=== PATIENT | female | born 1965 | race Caucasian/White ===

== ENCOUNTER → 2020-11-18 17:35 | Outpatient (CLI) | payer OTHER, SELFPAY ==
--- NOTE | ~2020-11-18 | MR_ITS ---
EXAMINATION: MR brain/brain stem wo con DATE: 11/18/2020 18:25 INDICATION: Headache. TECHNIQUE: Magnetic resonance imaging (MRI) of the brain and brainstem was performed without intraven ous contrast. Sequences included sagittal and axial T1-weighted FSE, axial diffusion-weighted FS EPI, axial T2*-weighted GRE, axial T2-weighted FLAIR Propeller, and axial T2-weighted Propeller. Apparent diffusion coefficient (ADC) maps were created. COMPARISON: None. FINDINGS: There is a 6.4 x 5.4 cm mass in the left frontal lobe that demonstrates heterogeneous signa l intensity including areas of decreased T2*weighted signal intensity and increased, decreased, and i ntermediate T1 and T2 weighted signal intensity. There is vasogenic edema in the adjacent white matte r. There is up to 14 mm rightward subfalcine midline shift. There is mass effect on the ventricles. T here is no acute ischemic infarct. 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 There is a m ucous retention cyst in left maxillary sinus. The orbits are normal. The mastoid air cells are normal . IMPRESSION: 1. Heterogenous 6.4 cm mass in left frontal lobe with blood products, most likely a glioblastoma or m etastatic disease. Reviewed, dictated and finalized at location A. L CUTTER IMPRESSION: 1. Heterogenous 6.4 cm mass in left frontal lobe with blood products, most like ly a glioblastoma or metastatic disease.
== END ==
PROVIDERS: PCP Family Medicine Adolescent Medicine; Visit Provider Physician Assistant
DX: R51.9 Headache, unspecified (principal); R22.0 Localized swelling, mass and lump, head
CPT/HCPCS: 70551

== ENCOUNTER 2024-09-06 09:33 | Emergency (ER) | payer OTHER, SELFPAY ==
[2024-09-06 09:40] VITALS: PULSE 95; RESP 26; O2SAT 100; O2SAT 99
[2024-09-06 09:44] VITALS: BP 163/103; PULSE 95; RESP 26; TEMP 35.7; O2SAT 100
--- NOTE | 2024-09-06 09:47 | ED_ITS ---
HPI - General Adult General Chief complaint: Chest Pain Stated complaint: flu-like symptoms Time Seen by Provider: 09/06/24 09:48 Source: patient, RN notes reviewed and old records reviewed Mode of arrival: ambulatory Limitations: no limitations History of Present Illness HPI narrative: 59-year-old presents to the with complaints epigastric pain, chest pain, shortness of breath and vomiting. Patient reports that she had some acid reflux on her [birth year]. States that she took some medication, it went away. Patient states 2 nights ago the heartburn returned, took medication which did not help. Comes in today with now vomiting, increased epigastric pain and shortness or breath. Onset (ago): day(s) (2) Treatments prior to arrival: none Related Data Home Medications ?Medication ?Instructions ?Recorded ?Confirmed ?Last Taken ?Type ogjcayka-ewr-DY 200 mcg-vit K 100 cap PO 04/14/23 06/19/24 Unknown History mcg-lycop 500 [id number] capsule (Daily Multivitamin) omega-3 fatty acids-fish oil 300 1 cap PO .QD 05/26/23 09/06/24 Unknown History mg-500 mg capsule (Fish Oil) Allergies Allergy/AdvReac Type Severity Reaction Status Date / Time No Known Allergies Allergy Verified 09/06/24 10:28 Review of Systems Review of Systems: All systems reviewed & are unremarkable except as noted in HPI and below Constitutional: Constitutional: Reports no additional constitutional complaints ENT: Reports system reviewed and no additional complaints, except as document ed Cardiovascular: Cardiovascular: Reports as per HPI, Reports chest pain, Reports dyspnea and Reports other (Pain radiating to her back) Respiratory: Respiratory: Reports as per HPI, Denies chest congestion, Denies cough and Reports dyspnea Gastrointestinal: Gastrointestinal: Reports as per HPI Musculoskeletal: Musculoskeletal: Reports no additional musculoskeletal complaints Integumentary/Breasts: Skin/Breast: Reports system reviewed and no additional complaints, except as docu PMFSH Past Medical History Medical History 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 Substance use: current Substance use type: does not use Last use: beers Do You Feel Safe in your Home?: Yes Lack of Transportation: No Lack of Food: Never True Current Housing: I Have Housing Concerned About Future Housing: No Difficulty Paying Gas/Electric Bills: No Difficulty Paying for Meds: No Currently Unemployed: No Education: Trade/Vocational Certificate Difficulty w/ Childcare or Family Care: No Occupation/Education: occupation Gender identity (if verbalized by the patient): Female Spiritual care concerns: No Comments At the time of my signature, I reviewed and agree with the nursing past medical, surgical, social, and family history. There is no relevant family history pertinent to the patient complaint. Exam Const: General: well developed, alert, acute distress severe, ill appearing and uncomfortable Nutritional Appearance: well nourished Orientation/consciousness: patient oriented x3 Limitations: no limitations HENMT: Head: normal to inspection Eyes: General: appearance normal, both eyes and all related structures Neck: Neck: normal visual inspection, full ROM, no lymphadenopathy and no meningeal signs Chest: Chest palpation & inspection: normal inspection of the chest Resp: Effort & Inspection: labored and tachypneic Cardio: Rate: regular rate GI: GI Palp: Yes abdominal tenderness (Epigastric) Skin: General skin exam: normal color and no rashes or lesions noted Neuro: General: gait normal, moves all extremities and no meningeal signs Cognition (Neuro): normal cognition Speech: normal speech Extrem: General: normal to inspection, full ROM and capillary refill normal Psych: Appearance: grossly normal Mental Status: mental status grossly normal Speech and movement: Normal speech and movement present and Clear s peech present Affect: Anxious affect present Attitude: cooperative Course Course Level of Care: Express Care Visit Vital Signs Vital signs: Vital Signs Temperature 96.2 F L 09/06/24 09:44 Pulse Rate 95 09/06/24 09:44 Respiratory Rate 26 H 09/06/24 09:44 Blood Pressure 163/103 H 09/06/24 09:44 Pulse Oximetry 100 09/06/24 09:44 Oxygen Delivery Room Air 09/06/24 09:44 Temperature 96.2 F L 09/06/24 09:44 Pulse Rate 95 09/06/24 09:44 Respiratory Rate 26 H 09/06/24 09:44 Blood Pressure 163/103 H 09/06/24 09:44 Pulse Oximetry 100 09/06/24 09:44 Oxygen Delivery Room Air 09/06/24 09:44 Reviewed Transfer Transfered to: [facility] (Closest facility due to acute MN) Transportation: ALS Transfer rationale: Patient being transferred, EKG shows acute MN Accepting physician: Spoke with Dr. Rubens Barger Medical Decision Making MDM Narrative Medical decision making narrative: Patient in excruciating pain sitting on the floor. Patient is vitals is tachypneic, hypertensive. EKG done due to patient's symptoms and age, acute MN noted with elevation in V2, V3, V4, V5. Aspirin given, EKG done. EMS was called, patient sent to closest facility [facility]. Report called to Agueda LEE Patient is transferred in guarded status. All questions have been answered, and the patient deny any further questions . Some parts of this dictation were generated by voice recognition software and may contain typographical and/or grammatical inaccuracies. Differential Diagnosis Differential Diagnosis: Post MA, acute cardiac event flu Medical Records Medical records reviewed: Yes I reviewed the external patient's medical records. Vital Signs Vital Signs: Vital Signs Temperature 96.2 F L 09/06/24 09:44 Pulse Rate 95 09/06/24 09:44 Respiratory Rate 26 H 09/06/24 09:44 Blood Pressure 163/103 H 09/06/24 09:44 Pulse Oximetry 100 09/06/24 09:44 Oxygen Delivery Room Air 09/06/24 09:44 Temperature 96.2 F L 09/06/24 09:44 Pulse Rate 95 09/06/24 09:44 Respiratory Rate 26 H 09/06/24 09:44 Blood Pressure 163/103 H 09/06/24 09:44 Pulse Oximetry 100 09/06/24 09:44 Oxygen Delivery Room Air 09/06/24 09:44 Reviewed Lab Data Lab results reviewed: Yes I reviewed the patient's lab results. Labs: Reviewed ECG Data EKG #1: Attestation: I personally reviewed and interpreted this ECG as follows: ECG completion date: 09/06/24 ECG completion time: 09:58 Prior ECG tracings: not available for review Ischemic changes: acute STEMI Interpretation: Acute MN, ventricle rate of 80, SD interval 168, QRS duration 85. ST elevation in V2 V3 V4 V5 Critical Care Time Critical Care Time Critical Care Time: No Discharge Plan Discharge Clinical Impression: ST elevation (STEMI) myocardial infarction Qualifiers: Involved coronary artery: unspecified coronary artery Qualified Code(s): I21.3 - ST elevation (STEMI) myocardial infarction of unspecified site Patient Disposition: Acute Care Hospital Condition: Guarded Prognosis Instructions: Antibiotic Form Patient Language: Yoruba Prescriptions: No Action Daily Multivitamin 200-100-500 mcg capsule PO Fish Oil 300-500 mg capsule 1 cap PO .QD sertraline 150 mg capsule 150 mg PO DAILY Qty: 90 3RF Follow-up/Referrals: Buddy Solomon MD [Primary Care Provider] -
[2024-09-06 10:04] VITALS: PULSE 112; RESP 26; O2SAT 99
--- NOTE | 2024-09-06 10:07 | ECG_ITS ---
Test Date: 2024-09-06 09:58:56 Measurements Intervals [place] Rate: 80 P: 68 CT: 168 QRS: 34 QRSD: 85 T: 61 QT: 395 QTc: 457 Interpretive Statements SINUS RHYTHM POSSIBLE LEFT ATRIAL ENLARGEMENT [-0.1mV P WAVE IN V1/V2] ANTEROSEPTAL MYOCARDIAL INFARCTION [40+ ms Q WAVE IN V1-V4], PROBABLY RECENT ACUTE HI ABNORMAL ECG Electronically Signed On 09-06-2024 12:07:02 EDUCATIONAL ADVISER by Hai Munoz M.D.
[2024-09-06] MEDS: ASPIRIN 81 MG CHEWABLE TABLET 324 MG PO (10:08)
== END 2024-09-06 10:04 | disposition short-term general hospital (02) ==
PROVIDERS: Emergency Provider Nurse Practitioner; PCP Family Medicine Adolescent Medicine
DX: I21.3 ST elevation (STEMI) myocardial infarction of unspecified site (principal); Z87.891 Personal history of nicotine dependence; Z85.841 Personal history of malignant neoplasm of brain; Z85.810 Personal history of malignant neoplasm of tongue
CPT/HCPCS: 93005; 99215; A9270; G0463

== ENCOUNTER 2024-09-06 10:22 | Inpatient (IN) | payer OTHER, SELFPAY ==
[2024-09-06] VITALS (19 sets, daily range): BP systolic 109–132; BP diastolic 72–94; PULSE 59–82; RESP 14–22; TEMP 36.4–37.2; O2SAT 94–100; BMI 23.8
--- NOTE | 2024-09-06 10:27 | ECG_ITS ---
Test Date: 2024-09-06 10:25:27 Measurements Intervals [place] Rate: 83 P: 82 WI: 166 QRS: 30 QRSD: 80 T: 52 QT: 376 QTc: 442 Interpretive Statements SINUS RHYTHM POSSIBLE LEFT ATRIAL ENLARGEMENT [-0.1mV P-WAVE IN V1/V2] LOW QRS VOLTAGE IN EXTREMITY LEADS [QRS DEFLECTION < 0.5 mV IN LIMB LEADS] ANTEROSEPTAL MYOCARDIAL INFARCTION , OF INDETERMINATE AGE [40+ ms Q WAVE IN V1-V4] MARKED ST ELEVATION, CONSIDER LATERAL INJURY [MARKED ST ELEVATION W/O NORMALLY INFLECTED T-WAVE IN I/aVL/V5/V6] ACUTE [place] ABNORMAL ECG Electronically Signed On 09-06-2024 12:08:01 PROCESS TREATER by Hai Munoz M.D.
--- NOTE | 2024-09-06 10:29 | ED_ITS ---
HPI - General Adult General Chief complaint: Chest Pain Stated complaint: stemi Time Seen by Provider: 09/06/24 10:27 History of Present Illness HPI narrative: 59-year-old female presenting to the emergency department for diagnosis of STEMI. Patient has had 2 days of viral symptoms but started having intense chest pain this morning that woke her up. Patient describes chest pain that radiates were addressed to her back. Patient initially presented to urgent care and had an EKG concerning for STEMI so EMS was called and patient was transported to [facility]. EKG was shared with Cardiology and they agree that this appears to be a STEMI. Upon arrival emergency department patient was treated with morphine for pain control in addition to 4000 units of heparin. Patient was evaluated by Cardiology and plan was to take the patient to the oven laborer. Related Data Home Medications ?Medication ?Instructions ?Recorded ?Confirmed ?Last Taken ?Type rqewppaj-hpx-GF 200 mcg-vit K 100 1 cap PO DAILY 04/14/23 09/06/24 09/04/24 History mcg-lycop 500 [id number] capsule (Daily Multivitamin) omega-3 fatty acids-fish oil 300 1 cap PO .QD 05/26/23 09/06/24 09/04/24 History mg-500 mg capsule (Fish Oil) sertraline 100 mg tablet 100 mg PO DAILY 09/06/24 09/06/24 09/04/24 History Allergies Allergy/AdvReac Type Severity Reaction Status Date / Time No Known Allergies Allergy Verified 09/06/24 10:28 Review of Systems 2 Review of Systems: All systems reviewed & are unremarkable except as noted in HPI and below PMFSH Past Medical History Medical History 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 Substance use: current Substance use type: does not use Last use: beers Do You Feel Safe in your Home?: Yes Lack of Transportation: No Lack of Food: Never True Current Housing: I Have Housing Concerned About Future Housing: No Difficulty Paying Gas/Electric Bills: No Difficulty Paying for Meds: No Currently Unemployed: No Education: Trade/Vocational Certificate Difficulty w/ Childcare or Family Care: No Occupation/Education: occupation Gender identity (if verbalized by the patient): Female Spiritual care concerns: No Exam 2 Narrative: APPEARANCE: Uncomfortable appearing HEAD: normocephalic, atraumatic. EYES: PERRLA/EOMI, conjunctivae clear. NOSE: Normal no drainage EARS:TMS clear with good light reflex. THROAT: Pharynx clear, no exudate. NECK: Supple. No adenopathy, no masses. RESPIRATORY: Airway patent, respirations nonlabored. Clear to auscultation bilaterally, no rales, rhonchi, wheezing. CARDIOVASCULAR: Regular rate and rhythm without murmurs rubs or gallops. ABDOMINAL: Soft, nontender, nondistended, normal bowel sounds MUSCULOSKELETAL: Moves all extremities. Strength/ROM intact, No edema, No calf tenderness. NEURO: Alert. Cranial nerves II through XII intact. Good gait. Good coordination SKIN: Warm, dry. Normal Color Course Vital Signs Vital signs: Vital Signs Temperature 97.5 F L 09/06/24 10:22 Pulse Rate 82 09/06/24 10:22 Respiratory Rate 22 H 09/06/24 10:22 Blood Pressure 132/92 H 09/06/24 10:22 Pulse Oximetry 100 09/06/24 10:22 Oxygen Delivery Room Air 09/06/24 10:22 Temperature 98.6 F 09/06/24 16:00 Pulse Rate 66 09/06/24 18:05 Respiratory Rate 20 09/06/24 18:05 Blood Pressure 119/79 09/06/24 18:05 Pulse Oximetry 98 09/06/24 18:05 Oxygen Delivery Room Air 09/06/24 16:32 Fraction of Inspired Oxygen 21 09/06/24 16:32 Medical Decision Making MDM Narrative Medical decision making narrative: Patient was called does STEMI in the field and was transferred to the oven laborer shortly after arrival to the emergency department. Vital Signs Vital Signs: Vital Signs Temperature 97.5 F L 09/06/24 10:22 Pulse Rate 82 09/06/24 10:22 Respiratory Rate 22 H 09/06/24 10:22 Blood Pressure 132/92 H 09/06/24 10:22 Pulse Oximetry 100 09/06/24 10:22 Oxygen Delivery Room Air 09/06/24 10:22 Temperature 98.6 F 09/06/24 16:00 Pulse Rate 66 09/06/24 18:05 Respiratory Rate 20 09/06/24 18:05 Blood Pressure 119/79 09/06/24 18:05 Pulse Oximetry 98 09/06/24 18:05 Oxygen Delivery Room Air 09/06/24 16:32 Fraction of Inspired Oxygen 21 09/06/24 16:32 Lab Data 09/06/24 10:33 09/06/24 10:33 Discharge Plan Discharge Clinical Impression: Epigastric abdominal pain, ST elevation [place] (STEMI), Chest pain Patient Disposition: Still a Patient Condition: Critical
[2024-09-06] MEDS: ONDANSETRON INJ 4 MG/2 ML VIAL IV PUSH (10:30)
[2024-09-06] MEDS: MORPHINE SULFATE (*CRX) 4 MG/ML INJ IV PUSH (10:33)
[2024-09-06] MEDS: HEPARIN SODIUM 5,000 UNITS/ML VIAL 4000 UNITS IV PUSH (10:38)
--- NOTE | 2024-09-06 10:39 | P.HP_ITS ---
H&P: HPI History of Present Illness Date/Time: 09/06/24 10:39 Chief Complaint: Chest pain Narrative: 59-year-old woman with depression on sertraline presented to our local emergency with chest discomfort that woke her up this morning. She was found to have ST-elevation [place] in the anterolateral leads and thus transferred to [facility] Emergency Department for further workup. She is currently still having significant chest discomfort that mildly improved with sublingual nitroglycerin. She was given aspirin 324 mg chewable and 4 mg IV Zofran. she denies any vascular surgeries, bleeding, or stroke history. She denies any other medical conditions for which she takes medication. 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 Substance use: never Lack of Transportation: No Lack of Food: Never True Current Housing: I Have Housing Concerned About Future Housing: No Difficulty Paying Gas/Electric Bills: YES Difficulty Paying for Meds: No Currently Unemployed: No Education: Associate Degree Occupation/Education: occupation Gender identity (if verbalized by the patient): Female Meds Home Medications and Allergies Home Medications ?Medication ?Instructions ?Recorded ?Confirmed ?Type hqsrbovh-ons-VQ 200 mcg-vit K 100 cap PO 04/14/23 06/19/24 History mcg-lycop 500 [id number] capsule (Daily Multivitamin) omega-3 fatty acids-fish oil 300 1 cap PO .QD 05/26/23 09/06/24 History mg-500 mg capsule (Fish Oil) sertraline 150 mg capsule 150 mg PO DAILY #90 caps 06/21/24 09/06/24 Rx Allergies Allergy/AdvReac Type Severity Reaction Status Date / Time No Known Allergies Allergy Verified 09/06/24 10:28 Vital Signs Vital Signs - 24 hr 09/06/24 10:22 Temperature 36.4 C L Pulse Rate 82 Respiratory Rate 22 H Blood Pressure 132/92 H Pulse Oximetry 100 Oxygen Delivery Room Air Exam Const: General: in distress HENMT: Mouth: Yes moist mucous membranes Eyes: EOM: EOMs intact bilaterally Neck: Neck: no JVD Resp: Effort & Inspection: normal respiratory effort Auscultation: clear to auscultation bilaterally Cardio: Rate: regular rate Rhythm: regular rhythm GI: GI Palp: Yes Soft to palpation Extrem: General: no pedal edema Assessment and Plan Assessment and plan (1) ST elevation (STEMI) myocardial infarction: Qualifiers: Involved coronary artery: unspecified coronary artery Qualified Code(s): I21.3 - ST elevation (STEMI) myocardial infarction of unspecified site Code(s): I21.3 - ST elevation (STEMI) myocardial infarction of unspecified site Status: Acute Plan 59-year-old woman with depression on sertraline presented to our local emergency with chest discomfort Anterolateral STEMI - risks, benefits, alternatives were discussed with patient who agreed to proceed under these emergent conditions - upfront loaded with aspirin 324mg and Brilinta 180mg - was given heparin 5000U in ER - will proceed with C with PCI - will obtain TTE
--- NOTE | 2024-09-06 10:43 | WPDHPUPDATE1 ---
History and Physical Update Update Date/Time: 09/06/24 10:43 History and Physical has been reviewed, including an updated exam of the patient. There are NO changes in the patient's condition. Risks, benefits, and alternatives have been discussed and questions answered. Patient agrees to proceed with procedure.
--- NOTE | 2024-09-06 10:43 | WPDMODSED ---
Moderate Sedation Note-Pt Data Patient Data Allergies Allergy/AdvReac Type Severity Reaction Status Date / Time No Known Allergies Allergy Verified 09/06/24 10:28 Home Medications ?Medication ?Instructions ?Recorded ?Confirmed ?Type ihpwyzwg-jjk-MB 200 mcg-vit K 100 cap PO 04/14/23 06/19/24 History mcg-lycop 500 [id number]-[id number]-I80 capsule (Daily Multivitamin) omega-3 fatty acids-fish oil 300 1 cap PO .QD 05/26/23 09/06/24 History mg-500 mg capsule (Fish Oil) sertraline 150 mg capsule 150 mg PO DAILY #90 caps 06/21/24 09/06/24 Rx Sedation/Anesthesia: No previous sedation/anesthesia problems (including family history). 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 Substance use: never Lack of Transportation: No Lack of Food: Never True Current Housing: I Have Housing Concerned About Future Housing: No Difficulty Paying Gas/Electric Bills: YES Difficulty Paying for Meds: No Currently Unemployed: No Education: Associate Degree Occupation/Education: occupation Gender identity (if verbalized by the patient): Female Mod Sed Physical Exam Physical Exam Pre Procedural Exam: Normal: Lungs, Heart Rate and Heart Rhythm Hours since solid foods: 12 Hours since liquid intake: 12 Mallampati Classification: class II Internal Medicine - PN: Obj Da Vital Signs Vital Signs: Vital Signs - 24 hr 09/06/24 10:22 Temperature 36.4 C L Pulse Rate 82 Respiratory Rate 22 H Blood Pressure 132/92 H Pulse Oximetry 100 Oxygen Delivery Room Air Labs 09/06/24 10:33 09/06/24 10:33 ASA Classification/Sedation ASA Classification/Sedation ASA Class: III Emergent: Yes Risks: Risks, benefits and alternatives explained and patient/family accepted plan for sedation. Patient re-evaluated immediately prior to sedation.
[2024-09-06 10:44] LABS: Basophils Percent Auto 0.4 % (0.2-1.2); Eosinophils Percent Auto 0.3 % (0-4.4); Hematocrit 40.1 % (37.0-47.0); Hemoglobin 14.4 g/dL (12.0-15.0); Immature Granulocyte Absolute 0.03 K/mm3 (0.00-0.031); Immature Granulocyte Percent A 0.4 % (0-0.5); Lymphocytes Absolute Auto 1.12 K/mm3 (0.9-3.2); Lymphocytes Percent Auto 15.3 % (18.3-44.2); Mean Corpuscular HGB Conc 35.9 g/dl (32-36); Mean Corpuscular Hemoglobin 34.1 pg (26-34); Mean Platelet Volume 10.1 fl (7.4-10.4); Monocytes Absolute Auto 0.4 K/mm3 (0.1-0.6); Monocytes Percent Auto 5.1 % (2.6-8.5); Neutrophils Absolute Auto 5.7 K/mm3 (1.3-6.7); Neutrophils Percent Auto 78.5 % (45.5-73.1); Platelet Count Result 277 k/mm3 (150-375); Red Blood Count 4.22 M/mm3 (4.2-5.4); Red Cell Distribution Width 12.4 % (11.5-14.5); White Blood Count 7.3 K/mm3 (4.5-10.0)
[2024-09-06 10:56] LABS: Alanine Aminotransferase 18 U/L (6-35); Albumin Level 4.7 g/dL (3.5-5.1); Alkaline Phosphatase 89 U/L (38-126); Anion Gap 8 mmol/L (4-12); Aspartate Amino Transferase 42 U/L (14-36); Bilirubin,Total 0.9 mg/dL (0.2-1.3); Blood Urea Nitrogen 14 mg/dL (7-17); Calcium 9.6 mg/dL (8.4-10.2); Carbon Dioxide 18 mmol/L (22-30); Chloride 111 mmol/L (98-107); Estimated CRCL calculation 73 ml/min; Estimated Glomerular Filt Rate > 60; Glucose 133 mg/dL (65-110); Lipase 132 U/L (23-300); Partial Thromboplastin Time 22.9 Seconds (22.3-36.8); Potassium 3.6 mmol/L (3.4-5.0); Prothrombin Time 13.2 Seconds (11.1-14.7); Sodium 137 mmol/L (137-145)
--- NOTE | 2024-09-06 11:23 | ECHO_ITS ---
Patient Info Name: Lynnette Joseph Age: 59 years : 1965 Gender: Female Ht: 63 in Wt: 138 lbs BSA: 1.68 m2 HR: 64 bpm BP: 113 / 76 mmHg Technical Quality: Good Exam Date: 09/06/2024 2:20 PM Exam Location: Echo Lab Patient Status: Inpatient Admit Date: 09/06/2024 Staff Ordering Physician: Allen Davis MD (lexie/ciera) Route Clerk: Brian Harvey RDCS Attending Provider: Allen Davis MD (leda) Exam Type: CA echo doppler color flow Study Info Indications - STEMI Complete two-dimensional, color flow and Doppler transthoracic echocardiogram is performed. Summary 1. Complete two-dimensional, color flow and Doppler transthoracic echocardiogram is performed. 2. The left ventricle is normal in size with mildly reduced systolic function. There is increased left ventricular wall thickness. The left ventricular ejection fraction is visually estimated to be 40-45%. 3. The entire apex, mid to distal inferoseptum, distal anterolateral, mid to distal anterior, mid to distal inferior, and mid to distal anteroseptal arredondo are severely hypokinetic. 4. The right ventricle is normal in size and systolic function. 5. There is no significant valvular disease in this study. Left Ventricle The left ventricle is normal in size with mildly reduced systolic function. There is increased left ventricular wall thickness. The left ventricular ejection fraction is visually estimated to be 40-45%. The entire apex, mid to distal inferoseptum, distal anterolateral, mid to distal anterior, mid to distal inferior, and mid to distal anteroseptal arredondo are severely hypokinetic. Right Ventricle The right ventricle is normal in size and systolic function. Left Atria The left atrium is normal size. Right Atria The right atrium is normal size. Atrial Septum The atrial septum visually appears intact. Aortic Valve The aortic valve is trileaflet and opens well. There is no aortic regurgitation. Pulmonic Valve The pulmonic valve is not well visualized. There is no color Doppler evidence of pulmonic valve regurgitation in this study. Mitral Valve The mitral valve is normal. There is no mitral regurgitation. Tricuspid Valve The tricuspid valve is normal. There is trace tricuspid regurgitation. Pericardium/Pleural Pericardium is normal in appearance with no evidence for significant pericardial effusion. Inferior Vena Cava Normal inferior vena cava with <50% collapse upon inspiration consistent with elevated right atrial pressure, 8 mmHg. Normal inferior vena cava with <50% collapse upon inspiration consistent with elevated right atrial pressure, 8 mmHg. Aorta The aortic root at the level of the sinus of Valsalva measures 3.0 cm in diameter. Left Ventricular Outflow Tract Name Value Normal LVOT 2D LVOT Diameter 2.1 cm LVOT Doppler LVOT Peak Gradient 3 mmHg LVOT Mean Gradient 2 mmHg LVOT VTI 18 cm LVOT VTI/AV VTI Ratio 0.7 LVOT Stroke Volume 63 ml LVOT CO 3.9 l/min LVOT CI 2.3 l/min/m2 Pulmonic Valve Name Value Normal RVOT Doppler RVOT Peak Gradient 2 mmHg PV Doppler PV Peak Gradient 2 mmHg Mitral Valve Name Value Normal MV Doppler MV Peak Gradient 3 mmHg MV Mean Gradient 1 mmHg MV Decel Gosper 550 cm/s2 MV PHT 36 ms MV Area (PHT) 6.2 cm2 4.0-5.0 MV Area (Cont Eq VTI) 2.3 cm2 MV Diastolic Function MV E Peak Velocity 68 cm/s MV A Peak Velocity 56 cm/s MV E/A 1.2 MV Decel Time 123 ms MV Annular TDI MV E/e' (Septal) 9.0 <=8.0 MV E/e' (Lateral) 8.2 <=8.0 MV E/e' (Average) 8.6 Tricuspid Valve Name Value Normal TV Regurgitation Doppler TR Peak Velocity 245 cm/s TR Peak Gradient 24 mmHg Estimated PAP/RSVP RA Pressure 8 mmHg <=5 PA Systolic Pressure 32 mmHg <36 RV Systolic Pressure 32 mmHg <36 Aortic Valve Name Value Normal AV Doppler AV Peak Velocity 117 cm/s AV Peak Gradient 5 mmHg AV Mean Gradient 3 mmHg AV VTI 25 cm AV Area (Cont Eq VTI) 2.5 cm2 >=3.0 AV Area (Cont Eq Cory) 2.6 cm2 AV Regurgitation 2D LVOT Area 3.5 cm2 Ventricles Name Value Normal LV Dimensions 2D/MM IVS Diastolic Thickness (2D) 1.1 cm 0.6-1.0 LVID Diastole (2D) 4.7 cm 3.8-5.2 LVIW Diastolic Thickness (2D) 1.4 cm 0.6-0.9 LVID Systole (2D) 3.4 cm 2.2-3.5 LVOT Diameter 2.1 cm LV Mass (2D Cubed) 234.54 g 67.00-162.00 LV Mass Index (2D Cubed) 140 g/m2 43-95 Relative Wall Thickness (2D) 0.62 LV Fractional Shortening/Ejection Fraction 2D/MM LV Fractional Shortening (2D) 27 % 27-45 LV EF (2D Teicholz) 53 % 54-74 LV Diastolic Volume (4C MOD) 81 ml LV EF (4C MOD) 53 % LV Diastolic Volume (2C MOD) 74 ml LV EF (2C MOD) 54 % LV Diastolic Volume (BP MOD) 78 ml 46-106 LV Diastolic Volume Index (BP MOD) 46 ml/m2 29-61 LV Systolic Volume (BP MOD) 36 ml 14-42 LV Systolic Volume Index (BP MOD) 21 ml/m2 8-24 LV EF (BP MOD) 54 % 54-74 LV Diastolic Length (4C) 7.5 cm LV Systolic Length (4C) 6.3 cm LV Stroke Volume (4C MOD) 43 ml Atria Name Value Normal LA Dimensions LA Volume (4C A-L) 29 ml LA Volume (BP A-L) 34 ml RA Dimensions RA Area (4C) 15.7 cm2 <=18.0 Report Signatures
--- NOTE | 2024-09-06 11:24 | WPDCARDPROC ---
Cardiac Cath Procedure Note Date of procedure:: 09/06/24 Performing physician:: CATHETERIZATION LABORATORY REPORT Procedure Date: 09/06/2024 Referring Physician: Dr. Art Anesthesia: Versed and Fentanyl were ordered and given in my presence at 1049, procedure ended at 1118. Supervision of nurse, Fidel Cameron monitored moderate sedation with 2mg Versed and 50mcg Fentanyl was provided for 29 minutes. Pre-op Diagnosis: Anterior STEMI Post-op Diagnosis: Anterior STEMI Procedure(s): Left heart catheterization with coronary angiography Percutaneous Coronary Intervention Access Site: Right DISTRICT REPRESENTATIVE Brief History and Clinical Indications: 59-year-old woman with depression on sertraline presented to our local emergency with chest discomfort found to have anterior ST-elevation [place] for which she was brought to the cardiac catheterization lab for primary PCI. All risks, benefits and alternatives to left heart catheterization with or without percutaneous coronary intervention was discussed at length with the patient. Risk of complications including but not limited to bleeding, infection, arrhythmia, stroke, worsening kidney function, blood loss, groin hematoma, limb loss, emergency coronary artery bypass grafting, and even were discussed with the patient and all questions were answered. The patient understood and wished to proceed. 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 Findings: LEFT HEART CATHETERIZATION FINDINGS: 1. Left main: The left main coronary artery is widely patent without any significant obstructive disease. 2. Left anterior descending: The LAD gives off 2 significant diagonal branches. The proximal LAD has 50% stenosis leading into an occlusion in the mid vessel. The first diagonal branch has an ostial 80% stenosis and it branches into 2 vessel, the lower one of which has a 50% stenosis in its proximal body. 3. Left circumflex: The left circumflex artery and the main marginal branches have mild luminal irregularities without any significant obstructive angiographic disease. 4. Right coronary artery: The RCA has mild luminal irregularities without any significant obstructive angiographic disease. The RCA is the dominant vessel. 5. Left ventricle: A. End-diastolic pressure 32 mmHg. B. LV gram deferred. C. No significant gradient across aortic valve on catheter pullback. 6. Opening AO pressure 139/83 and closing AO pressure 112/65 Description of Procedure: Informed consent signed and placed in the chart. Patient transferred to mineral ore processing labourer room. Prepped and draped in usual sterile fashion. 2% lidocaine in right groin area. Micropuncture needle used to access right common femoral artery with Seldinger technique under fluoroscopic guidance. J wire advanced, micropuncture cannula placed. Right iliofemoral angiogram performed, access confirmed and micropuncture cannula exchanged for 6-FR sheath. 6F EBU 3.5 guide catheter engaged Left Main Coronary Artery. 5F JR4 diagnostic catheter engaged Right Coronary Artery. Multiple orthogonal angiogram obtained and reviewed 5F Pigtail diagnostic catheter crossed aortic valve to obtain LVEDP, LV angiogram deferred. Hemostasis was achieved by Angioseal device Procedure Description for PCI: Heparin was used for anticoagulation (ACT maintained above 250) Patient loaded with heparin at 70 units/kg. 6F EBU 3.5 guide catheter was used to intubate the LMCA 0.014 Runthrough coronary wire was passed in to the distal LAD The lesion was pre-dilated with a 2.0 x 15 mm balloon inflated to high TRACE A 3.0 x 30mm [place] EDA was successfully deployed into proximal to mid LAD There was suspected basal spasm of the mid to distal LAD for which intracoronary NTG was administered with resolution of spasm. Coronary wire and guide-catheter were removed under fluoroscopy. Follow-up angiograms showed an excellent result. Pre-procedure - RONDA 0 flow Post-procedure - RONDA 3 flow No angiographic complications identified. Assessment: Successful PCI to the proximal to mid LAD with a 3.0 x 30mm [place] EDA with excellent angiographic results Post Operative Condition: Stable No significant blood loss Disposition: ICU Plan: DAPT for 1 year followed by ASA indefinitely. Continue aggressive medical therapy and risk factor modification. Follow up TTE Allen Davis Interventional Cardiology
[2024-09-06 11:33] LABS: Activated Clotting Time 193 SEC (74-137)
[2024-09-06 11:33] LABS: Activated Clotting Time 256 SEC (74-137)
--- NOTE | 2024-09-06 11:40 | ADMGEN ---
This patient, Lynnette Joseph, was admitted to Intensive Care Unit-3. Patient/family oriented to hospital policies and general routines including ID bracelet, bed and alarms, visiting hours, pain management, procedures, bathroom and other care routines, personal items, smoking policy, room service/diet, and visiting hours. Information on how to activate the Rapid Response Team has been discussed. Patient/Family are encouraged to report perceived risks to care and to ask questions if they do not understand what they are told or what they should do.
[2024-09-06] MEDS: SODIUM CHLORIDE 0.9% IV 1,000 ML 125 ML IV CONT (12:04)
--- NOTE | 2024-09-06 12:19 | P.CONIN_ITS ---
Assessment and Plan Assessment and plan (1) ST elevation [place] (STEMI): Code(s): I21.3 - ST elevation (STEMI) myocardial infarction of unspecified site Status: Acute Assessment and Plan: 09/06: Patient presented chest pain, was found to have STEMI, taken to the cardiac medical laboratory technician where she was found to have a total occlusion of the mid LAD, 50% stenosis of proximal LAD and 80% stenosis of the 1st diagonal branch. Status post EDA x1 to mid LAD, LVEDP 32 mmHg, LV gram deferred. -continue aspirin, metoprolol, rosuvastatin and ticagrelor -cardiology following the patient closely -echo has been ordered (2) History of oligodendroglioma of brain: Code(s): Z85.841 - Personal history of malignant neoplasm of brain Status: Acute Assessment and Plan: Patient states she follows with [facility] every 6 months for an MRI Plan DVT prophylaxis: Status post cardiac catheterization Stress ulcer prophylaxis: Not indicated Nutrition: Heart healthy diet Code Status: Full code Critical Care Time Spent: 46 minutes Due to a high probability of clinically significant, life threatening deterioration, the patient required my highest level of preparedness to intervene emergently and I personally spent this critical care time directly and personally managing the patient. This critical care time included obtaining a history; examining the patient; pulse oximetry; ordering and review of studies; arranging urgent treatment with development of a management plan; evaluation of patient's response to treatment; frequent reassessment; and discussions with other providers. It was exclusive of separately billable procedures and treating other patients and teaching time. Please see Assessment and Plan section and the rest of the note for further information on patient assessment and treatment This dictation may have been done utilizing a voice recognition system. Attempts have been made to correct errors. However, there may be uncorrected grammatical, spelling, and recognitions errors present. Plastics Nurse Consult Note Consult date: 09/06/24 Reason for consult: STEMI status post EDA x1 to mid LAD, LVEDP 32 mmHg, LV gram deferred HPI: Lynnette Joseph is a 59 year old female with past medical history of oligodendroglioma of the brain and history of tongue cancer, former smoker quit in 2019 presented the ED or chest pain that woke her up this morning. Patient was found to have ST-elevation [place] in the anterolateral leads and was transferred [facility] for further workup. Upon arrival to the ED she was given some lingual nitroglycerin, aspirin, Zofran and heparin. Patient was taken to the cardiac medical laboratory technician where she was found to have a total occlusion of the mid LAD, 50% stenosis of proximal LAD and 80% stenosis of the 1st diagonal branch. Status post EDA x1 to mid LAD, LVEDP 32 mmHg, LV gram deferred. Patient was transfer the ICU for further management Patient seen and examined the ICU, is awake, alert, oriented, nonfocal. Minimal chest pain, denies any shortness of breath, nausea, vomiting, abdominal pain. Stop smoking in 2019, continues to occasionally smoke. Drinks 2 beers a day, denies any illicit drug use. Patient is to follow-up a gated MRI every 6 months for her oligodendroglioma at [facility]. Denies any weakness in arms or legs. Review of Systems 2 Review of Systems: All systems reviewed & are unremarkable except as noted in HPI and below PMFSH Past Medical History Medical History 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 Substance use: current Substance use type: does not use Last use: beers Do You Feel Safe in your Home?: Yes Lack of Transportation: No Lack of Food: Never True Current Housing: I Have Housing Concerned About Future Housing: No Difficulty Paying Gas/Electric Bills: No Difficulty Paying for Meds: No Currently Unemployed: No Education: Trade/Vocational Certificate Difficulty w/ Childcare or Family Care: No Occupation/Education: occupation Gender identity (if verbalized by the patient): Female Spiritual care concerns: No Meds Home Medications and Allergies Home Medications ?Medication ?Instructions ?Recorded ?Confirmed ?Type [id number] 200 mcg-vit K 100 cap PO 04/14/23 06/19/24 History mcg-lycop 500 [id number] capsule (Daily Multivitamin) omega-3 fatty acids-fish oil 300 1 cap PO .QD 05/26/23 09/06/24 History mg-500 mg capsule (Fish Oil) sertraline 150 mg capsule 150 mg PO DAILY #90 caps 06/21/24 09/06/24 Rx Allergies Allergy/AdvReac Type Severity Reaction Status Date / Time No Known Allergies Allergy Verified 09/06/24 10:28 Vital Signs Vital Signs - 24 hr 09/06/24 10:22 09/06/24 11:42 09/06/24 11:45 Temperature 97.5 F L Pulse Rate 82 74 72 Respiratory Rate 22 H 15 14 Blood Pressure 132/92 H 121/79 113/72 Pulse Oximetry 100 95 94 Oxygen Delivery Room Air 09/06/24 12:00 09/06/24 12:15 Temperature 98.1 F Pulse Rate 78 76 Respiratory Rate 17 15 Blood Pressure 115/76 117/77 Pulse Oximetry 94 95 Oxygen Delivery Exam 2 Narrative: General: Pleasant female in no acute distress HEENT:? Pupils are equal and reactive, sclera is clear Neck: Supple Respiratory:? Clear to auscultation bilaterally, no wheezing, Cardiac:? Adequate air entry S1-S2 normal, regular rate and rhythm Abdomen:? Soft, nontender, nondistended, normoactive bowel sounds Extremities:? Right groin site without evidence of ecchymosis or hematoma, bilateral pedal pulses are palpable Neuro:? Patient is awake, alert, oriented, nonfocal, answers to questions appropriately and follows simple commands in all extremities Skin:? No skin lesions noted Psych:? Normal mentation and affect Results Labs 09/06/24 10:33 09/06/24 10:33 Labs: Short CBC 09/06/24 Range/Units 10:33 WBC 7.3 (4.5-10.0) K/mm3 Hgb 14.4 (12.0-15.0) g/dL Hct 40.1 (37.0-47.0) % Plt Count 277 (150-375) k/mm3 BMP 09/06/24 10:33 Sodium 137 Potassium 3.6 Chloride 111 H Carbon Dioxide 18 L BUN 14 Creatinine 0.60 L Glucose 133 H Calcium 9.6 Cardiac Enzymes 09/06/24 Range/Units 10:33 Troponin I 0.510 H* (0.000-0.034) ng/mL Liver Function 09/06/24 Range/Units 10:33 Total Bilirubin 0.9 (0.2-1.3) mg/dL AST 42 H (14-36) U/L ALT 18 (6-35) U/L Alkaline Phosphatase 89 (38-126) U/L Albumin 4.7 (3.5-5.1) g/dL Quality VTE Prophylaxis VTE prophylaxis: mechanical ordered Hospitalist MIPS Advance Care Plan I have confirmed that the patient's Advanced Care Plan is present, code status is documented, or surrogate decision maker is listed in patient medical record.: Yes Medication Reconciliation I have utilized all available resources to obtain, update and review the patients current medications (includes all prescriptions, OTC, herbals, cannabis, and nutritional supplements).: Yes
--- NOTE | 2024-09-06 12:54 | ECG_ITS ---
Test Date: 2024-09-06 13:58:36 Measurements Intervals [place] Rate: P: 0 LA: 0 QRS: 0 QRSD: 0 T: 0 QT: 0 QTc: 0 Interpretive Statements SINUS BRADYCARDIA PREMATURE VENTRICULAR CONTRACTION ST AND T-WAVE ABNORMALITY CONSISTENT WITH EVOLVING INFARCTION ABNORMAL ECG Electronically Signed On 09-07-2024 16:54:05 [employer]PER ROLLER HANDLER PRINTING by Hai Munoz M.D.
[2024-09-06 13:57] LABS: Cholesterol 205 mg/dL (0-200); HDL Direct 61 mg/dL; Triglycerides 136 mg/dL (<150)
[2024-09-06 14:07] LABS: LDL Cholesterol Direct 113 mg/dL
[2024-09-06 14:11] LABS: Troponin I > 80.000 ng/mL (0.000-0.034)
[2024-09-06 14:27] LABS: MRSA (PCR) NOT DETECTED (NOT DETECTE)
--- NOTE | 2024-09-06 14:34 | ECG_ITS ---
Test Date: 2024-09-06 13:59:32 Measurements Intervals [place] Rate: 61 P: 51 UT: 177 QRS: 2 QRSD: 79 T: 177 QT: 511 QTc: 516 Interpretive Statements SINUS RHYTHM POSSIBLE LEFT ATRIAL ENLARGEMENT [-0.1mV P-WAVE IN V1/V2] LOW QRS VOLTAGE IN EXTREMITY LEADS [QRS DEFLECTION < 0.5 mV IN LIMB LEADS] ANTEROSEPTAL MYOCARDIAL INFARCTION , PROBABLY RECENT [40+ ms Q WAVE IN V1-V4] ACUTE PA ABNORMAL ECG Electronically Signed On 09-07-2024 16:54:23 INTENSIVE CARE MEDICINE SPECIALIST by Hai Munoz M.D.
--- NOTE | 2024-09-06 15:02 | PCCCNOTE ---
Called to the ED for a STEMI for the pt. Directed the family and answered questions they had. Pt family taken to the ICU waiting area until pt is out of the laboratory mechanic helper. ICU notified.
[2024-09-06] MEDS: METOPROLOL SUCCINATE EXT REL 25 MG TABCR PO (16:02)
[2024-09-06] MEDS: ROSUVASTATIN 20 MG TABLET 40 MG PO (17:28)
[2024-09-06] MEDS: TICAGRELOR 90 MG TABLET PO (20:11)
[2024-09-07] VITALS (10 sets, daily range): BP systolic 91–117; BP diastolic 61–77; PULSE 60–76; RESP 10–20; TEMP 36.7–37.3; O2SAT 93–98
[2024-09-07 04:44] LABS: Basophils Percent Auto 0.4 % (0.2-1.2); Eosinophils Absolute Auto 0.1 K/mm3 (0-0.3); Eosinophils Percent Auto 0.8 % (0-4.4); Hematocrit 37.8 % (37.0-47.0); Immature Granulocyte Absolute 0.03 K/mm3 (0.00-0.031); Immature Granulocyte Percent A 0.4 % (0-0.5); Lymphocytes Absolute Auto 1.16 K/mm3 (0.9-3.2); Mean Corpuscular HGB Conc 34.4 g/dl (32-36); Monocytes Absolute Auto 0.5 K/mm3 (0.1-0.6); Monocytes Percent Auto 6.2 % (2.6-8.5); Neutrophils Percent Auto 77.2 % (45.5-73.1); Platelet Count Result 219 k/mm3 (150-375); Red Blood Count 3.82 M/mm3 (4.2-5.4); Red Cell Distribution Width 12.9 % (11.5-14.5); White Blood Count 7.7 K/mm3 (4.5-10.0)
[2024-09-07 04:58] LABS: Alanine Aminotransferase 46 U/L (6-35); Albumin Level 3.8 g/dL (3.5-5.1); Alkaline Phosphatase 66 U/L (38-126); Anion Gap 1 mmol/L (4-12); Aspartate Amino Transferase 323 U/L (14-36); Blood Urea Nitrogen 11 mg/dL (7-17); Carbon Dioxide 26 mmol/L (22-30); Chloride 110 mmol/L (98-107); Estimated CRCL calculation 73 ml/min; Estimated Glomerular Filt Rate > 60; Glucose 114 mg/dL (65-110); Magnesium 1.9 mg/dL (1.6-2.3); Phosphorus 3.3 mg/dL (2.5-4.5); Potassium 3.8 mmol/L (3.4-5.0); Sodium 137 mmol/L (137-145)
[2024-09-07] MEDS: TICAGRELOR 90 MG TABLET PO (08:44)
[2024-09-07] MEDS: SERTRALINE HCL 50 MG TABLET 100 MG PO (08:44)
[2024-09-07] MEDS: ASPIRIN 81 MG ENTERIC TABLET PO (08:44)
[2024-09-07] MEDS: METOPROLOL SUCCINATE EXT REL 25 MG TABCR PO (08:44)
--- NOTE | 2024-09-07 11:57 | WPDINTPN ---
Progress Note: A&P Assessment and Plan (1) ST elevation TN (STEMI): Code(s): I21.3 - ST elevation (STEMI) myocardial infarction of unspecified site Status: Acute Assessment and Plan: 09/06: Patient presented chest pain, was found to have STEMI, taken to the cardiac laboratory operations coordinator where she was found to have a total occlusion of the mid LAD, 50% stenosis of proximal LAD and 80% stenosis of the 1st diagonal branch. Status post EDA x1 to mid LAD, LVEDP 32 mmHg, LV gram deferred. -continue aspirin, metoprolol, rosuvastatin and ticagrelor -cardiology following the patient closely Patient low blood pressures this morning, losartan was held per Cardiology 09/06/2024: Echocardiogram Summary 1. Complete two-dimensional, color flow and Doppler transthoracic echocardiogram is performed. 2. The left ventricle is normal in size with mildly reduced systolic function. There is increased left ventricular wall thickness. The left ventricular ejection fraction is visually estimated to be 40-45%. 3. The entire apex, mid to distal inferoseptum, distal anterolateral, mid to distal anterior, mid to distal inferior, and mid to distal anteroseptal arredondo are severely hypokinetic. 4. The right ventricle is normal in size and systolic function. 5. There is no significant valvular disease in this study. (2) History of oligodendroglioma of brain: Code(s): Z85.841 - Personal history of malignant neoplasm of brain Status: Acute Assessment and Plan: Patient states she follows with [facility] every 6 months for an MRI Plan DVT prophylaxis: Status post cardiac catheterization Stress ulcer prophylaxis: Not indicated Nutrition: Heart healthy diet Code Status: Full code Critical Care Time Spent: 31 minutes Due to a high probability of clinically significant, life threatening deterioration, the patient required my highest level of preparedness to intervene emergently and I personally spent this critical care time directly and personally managing the patient. This critical care time included obtaining a history; examining the patient; pulse oximetry; ordering and review of studies; arranging urgent treatment with development of a management plan; evaluation of patient's response to treatment; frequent reassessment; and discussions with other providers. It was exclusive of separately billable procedures and treating other patients and teaching time. Please see Assessment and Plan section and the rest of the note for further information on patient assessment and treatment This dictation may have been done utilizing a voice recognition system. Attempts have been made to correct errors. However, there may be uncorrected grammatical, spelling, and recognitions errors present. Subjective Date/time seen: 09/07/24 11:57 Interval history: Reason for consult: STEMI status post EDA x1 to mid LAD, LVEDP 32 mmHg, LV gram deferred 09/07/2024: Patient seen and examined the ICU, is awake, alert, having breakfast. Denies any chest pain, shortness of breath, abdominal pain, nausea, vomiting. Currently on room air with adequate O2 sats, hemodynamically stable with adequate urine output. Review of Systems Review of Systems: All systems reviewed & are unremarkable except as noted in HPI and below Exam Narrative: General: Pleasant female in no acute distress HEENT:? Pupils are equal and reactive, sclera is clear Neck: Supple Respiratory:? Clear to auscultation bilaterally, no wheezing, Cardiac:? Adequate air entry S1-S2 normal, regular rate and rhythm Abdomen:? Soft, nontender, nondistended, normoactive bowel sounds Extremities:? Right groin site without evidence of ecchymosis or hematoma, bilateral pedal pulses are palpable Neuro:? Patient is awake, alert, oriented, nonfocal, answers to questions appropriately and follows simple commands in all extremities Skin:? No skin lesions noted Psych:? Normal mentation and affect Objective Data Vital Signs Vital Signs: Vital Signs - 24 hr 09/06/24 12:00 09/06/24 12:00 09/06/24 12:00 Temperature 98.1 F Pulse Rate 78 74 Respiratory Rate 17 Blood Pressure 115/76 Pulse Oximetry 94 Oxygen Delivery Room Air Fraction of Inspired Oxygen 09/06/24 12:15 09/06/24 12:30 09/06/24 12:45 Temperature Pulse Rate 76 70 64 Respiratory Rate 15 17 15 Blood Pressure 117/77 122/75 113/76 Pulse Oximetry 95 97 96 Oxygen Delivery Fraction of Inspired Oxygen 09/06/24 13:00 09/06/24 13:30 09/06/24 14:00 Temperature Pulse Rate 65 66 61 Respiratory Rate 17 15 Blood Pressure 118/83 123/85 Pulse Oximetry 99 94 Oxygen Delivery Fraction of Inspired Oxygen 09/06/24 14:00 09/06/24 15:00 09/06/24 16:00 Temperature 98.6 F Pulse Rate 61 59 L 67 Respiratory Rate 15 22 H 19 Blood Pressure 127/84 132/94 H 117/84 Pulse Oximetry 96 97 99 Oxygen Delivery Fraction of Inspired Oxygen 09/06/24 16:00 09/06/24 16:00 09/06/24 16:02 Temperature Pulse Rate 68 70 Respiratory Rate Blood Pressure Pulse Oximetry Oxygen Delivery Room Air Fraction of Inspired Oxygen 09/06/24 16:32 09/06/24 17:00 09/06/24 18:00 Temperature Pulse Rate 72 66 Respiratory Rate 14 Blood Pressure 109/79 Pulse Oximetry 97 96 Oxygen Delivery Room Air Fraction of Inspired Oxygen 21 09/06/24 18:00 09/06/24 18:05 09/06/24 20:00 Temperature 99.0 F Pulse Rate 66 66 77 Respiratory Rate 20 20 22 H Blood Pressure 119/79 119/79 128/83 Pulse Oximetry 98 98 98 Oxygen Delivery Fraction of Inspired Oxygen 09/06/24 20:00 09/06/24 20:00 09/06/24 22:00 Temperature Pulse Rate 65 72 Respiratory Rate Blood Pressure Pulse Oximetry Oxygen Delivery Room Air Fraction of Inspired Oxygen 09/06/24 22:00 09/07/24 00:00 09/07/24 00:00 Temperature 99.0 F Pulse Rate 72 66 Respiratory Rate 17 15 Blood Pressure 114/83 117/77 Pulse Oximetry 94 93 Oxygen Delivery Room Air Fraction of Inspired Oxygen 09/07/24 00:00 09/07/24 02:00 09/07/24 02:00 Temperature Pulse Rate 68 66 66 Respiratory Rate 17 Blood Pressure 98/75 L Pulse Oximetry 93 Oxygen Delivery Fraction of Inspired Oxygen 09/07/24 04:00 09/07/24 04:00 09/07/24 04:00 Temperature 98.8 F Pulse Rate 67 67 Respiratory Rate 16 Blood Pressure 94/67 L Pulse Oximetry 94 Oxygen Delivery Room Air Fraction of Inspired Oxygen 09/07/24 06:00 09/07/24 06:00 09/07/24 08:00 Temperature Pulse Rate 60 60 Respiratory Rate 15 Blood Pressure 100/68 Pulse Oximetry 95 Oxygen Delivery Room Air Fraction of Inspired Oxygen 09/07/24 08:00 09/07/24 08:00 09/07/24 08:44 Temperature 98.9 F Pulse Rate 64 61 74 Respiratory Rate 17 Blood Pressure 91/62 L Pulse Oximetry 95 Oxygen Delivery Fraction of Inspired Oxygen 09/07/24 10:00 09/07/24 10:00 Temperature Pulse Rate 67 62 Respiratory Rate 10 L Blood Pressure 91/65 L Pulse Oximetry 96 Oxygen Delivery Fraction of Inspired Oxygen Intake/Output Intake/Output: Intake & Output 09/04/24 09/05/24 09/06/24 09/07/24 23:59 23:59 23:59 23:59 Intake Total 1320 580 Output Total 1050 550 Balance 270 30 Meds/Results Medications: Active Medications Generic Name Dose Route Start Last Admin Trade Name Freq PRN Reason Stop Dose Admin Aspirin 81 mg 09/07/24 09:00 09/07/24 08:44 Aspirin 81 Mg Enteric Tablet PO 81 mg QAM CHARLEY Administration Losartan Potassium 25 mg 09/07/24 09:00 09/07/24 08:45 Losartan Potassium 25 Mg Tablet PO Not Given DAILY CHARLEY Metoprolol Succinate 25 mg 09/06/24 13:25 09/07/24 08:44 Metoprolol Succinate Ext Rel 25 Mg Tabcr PO 25 mg QAM CHARLEY Administration Perflutren Lipid Microsphere 0 ml 09/06/24 11:23 Perflutren Lipid Microspheres 1.5 Ml Vial Diluted To 10 Ml Total Volume IV PUSH 09/09/24 11:23 ONCE PRN adequate visualization Protocol Rosuvastatin Calcium 40 mg 09/06/24 18:00 09/06/24 17:28 Rosuvastatin 20 Mg Tablet PO 40 mg QPM CHARLEY Administration Sertraline HCl 100 mg 09/06/24 09:00 09/07/24 08:44 Sertraline Hcl 50 Mg Tablet PO 100 mg DAILY CHARLEY Administration Ticagrelor 90 mg 09/06/24 21:00 09/07/24 08:44 Ticagrelor 90 Mg Tablet PO 90 mg Q12HR CHARLEY Administration Labs Labs: Laboratory Results - last 24 hr 09/06/24 09/06/24 09/06/24 10:33 12:55 13:25 WBC RBC Hgb Hct MCV MCH MCHC RDW Plt Count MPV Immature Gran % (Auto) Neut % (Auto) Lymph % (Auto) [place] % (Auto) Eos % (Auto) Baso % (Auto) Lymph # (Auto) [place] # (Auto) Eos # (Auto) Baso # (Auto) Abs Immat Gran (auto) Absolute Neuts (auto) Absolute Nucleated RBC Nucleated RBC % Sodium Potassium Chloride Carbon Dioxide Anion Gap BUN Creatinine Estim Creat Clear Calc Estimated GFR Glucose Calcium Phosphorus Magnesium Total Bilirubin AST ALT Alkaline Phosphatase Troponin I > 80.000 H* D Total Protein Albumin Triglycerides 136 Cholesterol 205 H LDL Cholesterol Direct 113 HDL Direct 61 Nasal MRSA (PCR) Not detected 09/07/24 04:28 WBC 7.7 RBC 3.82 L Hgb 13.0 Hct 37.8 MCV 99.0 MCH 34.0 MCHC 34.4 RDW 12.9 Plt Count 219 MPV 10.0 Immature Gran % (Auto) 0.4 Neut % (Auto) 77.2 H Lymph % (Auto) 15.0 L [place] % (Auto) 6.2 Eos % (Auto) 0.8 Baso % (Auto) 0.4 Lymph # (Auto) 1.16 [place] # (Auto) 0.5 Eos # (Auto) 0.1 Baso # (Auto) 0.0 Abs Immat Gran (auto) 0.03 Absolute Neuts (auto) 6.0 Absolute Nucleated RBC 0.000 Nucleated RBC % 0.0 Sodium 137 Potassium 3.8 Chloride 110 H Carbon Dioxide 26 Anion Gap 1 L BUN 11 Creatinine 0.60 L Estim Creat Clear Calc 73 Estimated GFR > 60 Glucose 114 H Calcium 9.0 Phosphorus 3.3 Magnesium 1.9 Total Bilirubin 1.0 AST 323 H ALT 46 H Alkaline Phosphatase 66 Troponin I Total Protein 6.0 L Albumin 3.8 Triglycerides Cholesterol LDL Cholesterol Direct HDL Direct Nasal MRSA (PCR) Quality VTE Prophylaxis VTE prophylaxis: mechanical ordered
--- NOTE | 2024-09-07 16:22 | P.DS_ITS ---
DS: Admitting Diagnosis Discharge Date 09/07/2024 Admitting Diagnosis STEMI DS: Discharge Diagnosis Discharge Diagnosis Plan 59-year-old woman with depression on sertraline presented initially with chest discomfort found to have anterior ST-elevation AL for which she was brought to the cardiac catheterization lab for primary PCI. She underwent successful primary PCI to prox to mid LAD and is currently symptom free. The cardiac catheterization was performed under right common femoral artery approach and she has no hematoma or swelling at that site. Distal pulses are palpable. She was able to ambulate in the ICU without significant discomfort. Her hospital course included a transthoracic echocardiogram which revealed mildly reduced systolic function with regional wall motion abnormalities along the LAD distribution. Her EKG on repeat does show Q-waves across the precordial leads. She was initiated on metoprolol succinate 25 mg p.o. daily. Her blood pressure was unable to tolerate addition of low-dose losartan 25 mg p.o. daily. She was also initiated on aspirin 81 mg p.o. daily and Brilinta 90 mg q.12 and rosuvastatin 40 mg every evening. She will follow up with Cardiology outpatient and be initiated on cardiac rehab. DS: Summary Hospital Course Reason for hospitalization: 59-year-old woman with depression on sertraline presented initially with chest discomfort found to have anterior ST-elevation AL for which she was brought to the cardiac catheterization lab for primary PCI. She underwent successful primary PCI to prox to mid LAD and is currently symptom free. The cardiac catheterization was performed under right common femoral artery approach and she has no hematoma or swelling at that site. Distal pulses are palpable. She was able to ambulate in the ICU without significant discomfort. Her hospital course included a transthoracic echocardiogram which revealed mildly reduced systolic function with regional wall motion abnormalities along the LAD distribution. Her EKG on repeat does show Q-waves across the precordial leads. She was initi ated on metoprolol succinate 25 mg p.o. daily. Her blood pressure was unable to tolerate addition of low-dose losartan 25 mg p.o. daily. She was also initiated on aspirin 81 mg p.o. daily and Brilinta 90 mg q.12 and rosuvastatin 40 mg every evening. She will follow up with Cardiology outpatient and be initiated on cardiac rehab. Hospital Course: 59-year-old woman with depression on sertraline presented initially with chest discomfort found to have anterior ST-elevation AL for which she was brought to the cardiac catheterization lab for primary PCI. She underwent successful primary PCI to prox to mid LAD and is currently symptom free. The cardiac catheterization was performed under right common femoral artery approach and she has no hematoma or swelling at that site. Distal pulses are palpable. She was able to ambulate in the ICU without significant discomfort. Her hospital course included a transthoracic echocardiogram which revealed mildly reduced systolic function with regional wall motion abnormalities along the LAD distribution. Her EKG on repeat does show Q-waves across the precordial leads. She was initiated on metoprolol succinate 25 mg p.o. daily. Her blood pressure was unable to tolerate addition of low-dose losartan 25 mg p.o. daily. She was also initiated on aspirin 81 mg p.o. daily and Brilinta 90 mg q.12 and rosuvastatin 40 mg every evening. She will follow up with Cardiology outpatient and be initiated on cardiac rehab. Time spent discussing smoking cessation with patient: 3 to 10 minutes Status at Discharge Functional status at discharge: independent ambulation Overall status at discharge: patient is progressing back to baseline Time Spent with Patient Time attestation: Total time spent providing and/or coordinating discharge services: Time spent: Greater than 30 minutes Exam Const: General: comfortable HENMT: Mouth: Yes moist mucous membranes Eyes: EOM: EOMs intact bilaterally Neck: Neck: no JVD Resp: Effort & Inspection: normal respiratory effort Auscultation: clear to auscultation bilaterally Cardio: Rate: regular rate Rhythm: regular rhythm GI: GI Palp: Yes Soft to palpation Extrem: General: no edema Psych: Affect: normal affect DS: Data Data Completed and Pending Labs on day of discharge: Labs from last 24 hours 09/07/24 04:28 WBC 7.7 RBC 3.82 L Hgb 13.0 Hct 37.8 MCV 99.0 MCH 34.0 MCHC 34.4 RDW 12.9 Plt Count 219 MPV 10.0 Immature Gran % (Auto) 0.4 Neut % (Auto) 77.2 H Lymph % (Auto) 15.0 L [place] % (Auto) 6.2 Eos % (Auto) 0.8 Baso % (Auto) 0.4 Lymph # (Auto) 1.16 [place] # (Auto) 0.5 Eos # (Auto) 0.1 Baso # (Auto) 0.0 Abs Immat Gran (auto) 0.03 Absolute Neuts (auto) 6.0 Absolute Nucleated RBC 0.000 Nucleated RBC % 0.0 Sodium 137 Potassium 3.8 Chloride 110 H Carbon Dioxide 26 Anion Gap 1 L BUN 11 Creatinine 0.60 L Estim Creat Clear Calc 73 Estimated GFR > 60 Glucose 114 H Calcium 9.0 Phosphorus 3.3 Magnesium 1.9 Total Bilirubin 1.0 AST 323 H ALT 46 H Alkaline Phosphatase 66 Total Protein 6.0 L Albumin 3.8 Discharge Plan Discharge Attending physician on discharge: Allen Davis Discharging Clinician: Allen Davis Patient Disposition: Home, Self-Care Activity: may shower, no straining and may drive after 2 weeks Diet: heart healthy Patient Instructions: Antibiotic Form Patient Language: Setswana Stand Alone Forms: General Discharge Information Follow-up/Referrals: Allen Davis MD [Physician] - Discharge Medications: New Brilinta 90 mg Tablet 90 mg PO Q12HR Qty: 90 3RF aspirin 81 mg Tablet,Delayed Release (Dr/Ec) 81 mg PO QAM Qty: 90 3RF rosuvastatin 20 mg Tablet 40 mg PO QPM Qty: 90 3RF metoprolol succinate [Toprol XL] 25 mg Tablet Extended Release 24 Hr 25 mg PO QAM Qty: 90 3RF sertraline [Zoloft] 50 mg Tablet 100 mg PO DAILY Qty: 90 0RF Continued Daily Multivitamin 200-100-500 mcg capsule 1 cap PO DAILY Fish Oil 300-500 mg capsule 1 cap PO .QD Discontinued sertraline 100 mg tablet 100 mg PO DAILY Date of admission: 09/06/24 10:27 Primary Care Provider: Buddy Solomon Admitting Provider: Allen Davis Attending physician on admission: Allen Davis Condition: Critical
== END 2024-09-07 17:17 | disposition home or self-care (01) | DRG 322 ==
LOC: ANHED 10:30 → ANHICU 10:52
PROVIDERS: Internal Medicine; Admitting Provider Internal Medicine; Emergency Provider Emergency Medicine; PCP Family Medicine Adolescent Medicine; Visit Provider Internal Medicine
PROC: 4A023N7 Measurement of Cardiac Sampling and Pressure, Left Heart, Percutaneous Approach (ICD-10-PCS; CPT 93452; principal; 2024-09-06 23:59)
PROC: 027034Z Dilation of Coronary Artery, One Artery with Drug-eluting Intraluminal Device, Percutaneous Approach (ICD-10-PCS; 2024-09-06 23:59)
PROC: 027034Z Dilation of Coronary Artery, One Artery with Drug-eluting Intraluminal Device, Percutaneous Approach (ICD-10-PCS; 2024-09-06 23:59)
DX: I21.09 ST elevation (STEMI) myocardial infarction involving other coronary artery of anterior wall (principal); F32.A Depression, unspecified; Z87.891 Personal history of nicotine dependence; Z85.810 Personal history of malignant neoplasm of tongue; Z85.841 Personal history of malignant neoplasm of brain
CPT/HCPCS: 36415; 80053; 80061; 83690; 83735; 84100; 84484; 85025; 85610; 85730; 87641; 93005; 93306; 93458; 99285; A9270; C1725; C1760; C1769; C1874; C1887; C1894; C9606; G0269; J1644; J2003; J2250; J2270; J2305; J2405; J3010; J7030; J7040

== ENCOUNTER 2024-11-26 16:15 | Outpatient (RCR) | payer OTHER, SELFPAY | END 2024-11-29 16:22 | disposition home or self-care (01) | LOC: ANHCPREHAB 16:15 | PROVIDERS: PCP Family Medicine Adolescent Medicine; Visit Provider Internal Medicine | DX: Z95.5 Presence of coronary angioplasty implant and graft (principal) | CPT/HCPCS: 93798 ==

== ENCOUNTER 2025-06-16 14:36 | Emergency (ER) | payer OTHER, SELFPAY ==
--- NOTE | ~2025-06-16 | CT_ITS ---
EXAMINATION: CT brain wo dean, 06/16/2025 15:30 CDT HISTORY: possible seizure COMPARISON: No comparisons available. Technique: Axial images obtained of the brain without contrast. One or more of the following dose reduction techniques were used: automated exposure control, adjustment of the mA and/or kV according to patient size, use of iterative reconstruction technique. Findings: There is encephalomalacia noted in the left frontal lobe with adjacent craniotomy changes noted, no acute infarct or hemorrhage identified. No midline shift or mass effect. No extra-axial fluid collections. Mastoid air cells unremarkable. Sinuses and orbits unremarkable. No acute fracture. No significant facial or scalp soft tissue swelling evident. No radiopaque foreign body is seen. Impression: 1.No acute intracranial abnormality. Reviewed, dictated and finalized at location P. Impression: 1.No acute intracranial abnormality.
--- NOTE | ~2025-06-16 | XR_ITS ---
EXAMINATION: XR chest 2V, 06/16/2025 15:25 CDT HISTORY: poss seizure COMPARISON: No comparisons available. Technique: 2 views obtained. Findings: The lungs are clear, no effusion. No pneumothorax. Heart is normal size. Mediastinal and hilar contours are within normal limits. Bony thorax no acute abnormality. Impression: No acute cardiopulmonary abnormality. Reviewed, dictated and finalized at location P. Impression: No acute cardiopulmonary abnormality.
--- OUTSIDE RECORDS SUMMARY | 2025-06-16 14:40 | XMS_ITS ---
Author Organization [facility] [address] Address [address] [place] [address] Care Team Providers Care Molasses And Caramel Operator Name Role Phone Buddy Solomon MD Primary Care Prov ider Ofe Valencia MD Unavailable [phone] Allen Davis MD Unavailable Active Problems Problem Noted Date Diagnosed Date Cardiomyopathy, ischemic 01/22/2025 Coronary artery disease invo lving [place] coronary artery of [place] heart 09/06/2024 ST elevation (STEMI) myocard ial infarction involving left anterior descending coronary artery 09/06/2024 Presence of stent in coronary artery 09/06/2024 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 11/26/2020:WHO Grade III- Signed by Faheem Lee MD on 10/09/2021 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 Past Treatment and Therapy Plans Oncology Chemotherapy Treatment Plan Name Start Date Discontinue Date Treatment Medications Discontinue Reason Plan Provider Cycles Temozolomide 02/06 Schedule - Post Radiation - 28 Day Cycles - Brain 1 04/06/2021 temozolomide (TEMODAR) Provider Discretion Chris Coburn MD PhD Treatment not started Temozolomide with Concurrent Radiation 6 Week Cycle - Brain 1 01/13/2021 temozolomide (TEMODAR) Change in Level of Care Chris Coburn MD PhD 1 of 1 cycle started Oncology Treatment (2) Plan Name Start Date Discontinue Date Treatment Medications Discontinue Reason Plan Provider Cycles [id number] - [facility] - Brain - Temozolomide 04/13/2021 03/25/2022 temozolomide (TEMODAR) Therapy Complete Fabian Che MD 12 of 12 cycles started Radiation Treatments * Course [id number]/19/2021 - 03/04/2021 Treatment Period Energy Fraction Dose Fractions Total Dose Plans Planned P+ BRAIN 01/19/2021 - 03/04/2021 180 30 / 5,400 Reference Points Delivered P+ BRAIN1 01/19/2021 - 03/04/2021 5,382 Lifetime Dose Tracking * Chemical Lifetime Dose Automatic Entry Manual Entr y DLP 1,973 mGycm 1,973 mGycm 0 mGycm Resolved Problems Problem Noted Date Diagnosed Date Resolved Date 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
--- OUTSIDE RECORDS SUMMARY | 2025-06-16 14:40 | XMS_ITS | Encounter Summary ---
Author Organization [facility] Healthcare Address [address] [place] [address] Care Team Providers Care Supervisor Sewer System Name Role Phone Buddy Solomon MD Primary Care Prov ider Ofe Valencia MD Unavailable [phone] Allen Davis MD Unavailable Encounter Details Date Type Department Care Team (Late st Contact Info) Description 09/06/2024 Orders Only [facility] Health Information Management [address] [place] [address] Allen Davis MD [address] [place] [address] Social History Tobacco Use Types Packs/Day Years Used Date Smoking Tobacco: Former Cigarettes 1 34 1 985 - 09/11/2018 Passive Smoke Exposure: Past Smokeless Tobacco: Never Alcohol Use Standard Drinks/Week Comments Yes 10 (1 standard drink = 0.6 oz pu re alcohol) AUDIT-C Answer Date Recorded Frequency of Alcohol Consumption Not on file 10/22/2021 Q2: How many drinks containi ng alcohol do you have on a typical day when you are drinking? 1 or 2 10/22/2021 Q3: How often do you have si x or more drinks on one occasion? 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 Gender Identity Female 06/09/2021 8:26 AM CDT Sexual Orientation Straight 06/09/2021 8 :26 AM CDT documented as of this encounter Plan of Treatment Not on file documented as of this encounter Procedures Procedure Name Priority Date/Time Associated Diagnosis Comments CARDIOLOGY DOCUMENT SCAN 09/06/2024 documented in this encounter Results * Cardiology Document Scan (09/06/2024) Anatomical Region Laterality Modality Other us Allen Davis MD CV CARDIAC SERVICES PROCEDURES E dited Result - Final documented in this encounter Visit Diagnoses Not on filedocumented in this encounter Care Teams Supervisor Sewer System Relationship Specialty Start Date End Date Buddy Solomon MD PCP - General Family Medicine 08/28/18 Ofe Valencia MD Radiation Oncologist Radiation Oncology 12/19/20 Allen Davis MD [address] [place] [address] Consulting Physician Cardiology 09/27/24 documented as of this encounter
--- OUTSIDE RECORDS SUMMARY | 2025-06-16 14:40 | XMS_ITS | Encounter Summary ---
Author Organization [facility] Address [address] [place] [address] Phone Care Team Providers Care Real Estate Economist Name Role Phone Buddy Solomon MD Primary Care Prov ider Ofe Valencia MD Unavailable [phone] Allen Davis MD Unavailable Encounter Details Date Type Department Care Team (Late st Contact Info) Description [facility] Tobacco Use Types Packs/Day Years Used Date Smoking Tobacco: Every Day Cigarettes 1 40.8 Started: 1982 Smokeless Tobacco: Never Alcohol Use Standard Drinks/Week Comments Yes 10 (1 standard drink = 0.6 oz pu re alcohol) Comments No Sex and Gender Information Value Date Recorded Sex Assigned at Not on file Legal 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 Gender Identity Female 06/09/2021 8:26 AM CDT Sexual Orientation Straight 06/09/2021 8: 26 AM CDT documented as of this encounter Plan of Treatment Not on file documented as of this encounter Visit Diagnoses Not on filedocumented in this encounter Care Teams Real Estate Economist Relationship Specialty Start Date End Date Buddy Solomon MD PCP - General Family Medicine 08/28/18 Ofe Valencia MD Radiation Oncologist Radiation Oncology 12/19/20 Allen Davis MD [address] [facility] [address] [place] [address] Consulting Physician Cardiology 09/27/24 documented as of this encounter
--- OUTSIDE RECORDS SUMMARY | 2025-06-16 14:40 | XMS_ITS | Encounter Summary ---
Author Organization [facility] Healthcare Address [address] [place] [address] Care Team Providers Care Mechanic Foreman Name Role Phone Buddy Solomon MD Primary Care Prov ider Ofe Valencia MD Unavailable [phone] Allen Davis MD Unavailable Encounter Details Date Type Department Care Team (Late st Contact Info) Description 02/11/[address] [facility] Radiation Oncology [address] [facility] [place] [address] Ofe Valencia MD [address] [place] [address] Social History Tobacco Use Types Packs/Day Years Used Date Smoking Tobacco: Former Cigarettes 1 34 1 985 - 09/11/2018 Smokeless Tobacco: Never Alcohol Use Standard Drinks/Week Comments Yes 10 (1 standard drink = 0.6 oz pu re alcohol) AUDIT-C Answer Date Recorded Q1: How often do you have a drink containing alcohol? 4 or more times a week 12/18/2020 Q2: How many drinks containi ng alcohol do you have on a typical day when you are drinking? 3 or 4 Q3: How often do you have si x or more drinks on one occasion? 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 Gender Identity Female 06/09/2021 8:26 AM CDT Sexual Orientation Straight 06/09/2021 8: 26 AM CDT documented as of this encounter Last Filed Vital Signs Vital Sign Reading Time Taken Comments Blood Pressure - - Pulse - - Temperature - - Respiratory Rate - - Oxygen Saturation - - Inhaled Oxygen Concentration - - Weight 71.3 kg (157 lb 3.2 oz) 02/11/2021 10:28 AM CDT Height - - Body Mass Index 27.85 01/15/2021 8:17 AM CDT documented in this encounter Plan of Treatment Not on file documented as of this encounter Visit Diagnoses Not on filedocumented in this encounter Care Teams Mechanic Foreman Relationship Specialty Start Date End Date Buddy Solomon MD PCP - General Family Medicine 08/28/18 Ofe Valencia MD Radiation Oncologist Radiation Oncology 12/19/20 Allen Davis MD [address] [place] [address] Consulting Physician Cardiology 09/27/24 documented as of this encounter
--- OUTSIDE RECORDS SUMMARY | 2025-06-16 14:40 | XMS_ITS | Clinical Summary ---
Author Organization [facility] s Address [address] [place] [address] Care Team Providers Care Restaurant And Bar Manager Name Role Phone Buddy Solomon MD Primary Care Prov ider Ofe Valencia MD Unavailable [phone] Allen Davis MD Unavailable Allergies No known active allergies Medications sertraline (ZOLOFT) 100 mg tabletIndicatio ns:depression Take 1 tablet (100 mg total) by mouth daily 8 Active omega-3 fatty acids 1,000 mg capsuleIndicati ons:hypertrigly ceridemia Take 1 tablet by mouth knotter hand before breakfast. Active snyyxqxl-hlyu-e in-folic acid 18-0.4 mg tablet Take by mouth. 8 Active senna (SENOKOT) 8.6 mg tablet as needed 1 Active metoprolol XL (TOPROL-XL) 25 mg extended release tablet Take 1 tablet (25 mg total) by mouth daily Active aspirin 81 mg enteric coated tablet Take 1 tablet (81 mg total) by mouth daily Active rosuvastatin (CRESTOR) 20 mg tablet Take 1 tablet (20 mg total) by mouth daily Active clopidogreL (PLAVIX) 75 mg tablet Take 1 tablet (75 mg total) by mouth daily 90 tablet 1 5 01/09/20 26 Active spironolactone (ALDACTONE) 25 mg tabletIndicatio ns:Cardiomyopat hy, ischemic Take 0.5 tablets (12.5 mg total) by mouth daily 45 tablet 3 5 04/09/20 26 Active sacubitriL-vals maicol (Entresto) 24-26 mg tablet Take 1 tablet by mouth 2 (two) times a day 180 tablet 2 5 Active sacubitriL-vals maicol (Entresto) 24-26 mg tablet Take 1 tablet by mouth 2 (two) times a day 180 tablet 1 5 05/22/20 25 Discontinu ed(Reorder ) Active Problems Problem Noted Date Diagnosed Date Cardiomyopathy, ischemic 01/22/2025 Coronary artery disease invo lving [place] coronary artery of [place] heart 09/06/2024 ST elevation (STEMI) myocard ial infarction involving left anterior descending coronary artery 09/06/2024 Presence of stent in coronary artery 09/06/2024 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 11/26/2020:WHO Grade III- Signed by Faheem Lee MD on 10/09/2021 Tongue cancer (CMS/HCC) 08/30/2018 Resolved Problems Problem Noted Date Diagnosed Date Resolved Date 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 Encounters Date Type Department Care Team Description 03/28/2025 Telephone [facility] Cardiology [address] [place] [address] Allen Davis MD from Last 3 Months Immunizations Immunization Administration Dates Next Due Pfizer SARS-CoV-2 Monovalent Vaccination (12+ Yrs) PURPLE 05/03/2021,10/31/2020,10/07/2020 Surgical History Surgery Date Site/Laterality Comments TONSILLECTOMY TUBAL LIGATION 09/12/1998 - 09/11/1999 TONGUE BIOPSY 09/12/2017 - 09/11/2018 x1 BRAIN SURGERY 11/26/2020 Left Juliet Braden CORONARY ANGIOPLASTY WITH STENT PLACEMENT 09/06/2024 Medical History Medical History Date Comments Smoker Squamous cell carcinoma of tongue (HCC) 2017 Anxiety Depression Pneumonia Oligodendroglioma (HCC) 11/26/2020 Oligodendroglioma (HCC) 11/26/2020 CAD (coronary artery disease) 09/06/2024 STEMI involving left anterior descending coronar y artery (HCC) 09/06/2024 Family History Medical History Relation Name Comments Allergies Brother lilli joseph Allergies Father dyana joseph Bladder Cancer Father dyana joseph No Known Problems Mother Cancer Mother's Sister vega Breast cancer Paternal Grandmother Relation Name Status Comments Brother lilli joseph Father dyana joseph Alive Mother Alive Mother's Sister vega Alive Paternal Grandmother Social History Tobacco Use Types Packs/Day Years Used Date Smoking Tobacco: Never Cigarettes 1 34 19 85 - 09/11/2018 Passive Smoke Exposure: Past Smokeless Tobacco: Never Tobacco Cessation:Counseling Given: Not Answered Comments:Quit smoking after cancer then restarted this year due to stress Alcohol Use Standard Drinks/Week Comments Yes 10 [...] on file Legal Sex Female 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 Gender Identity Female 06/09/2021 8:26 AM CDT Sexual Orientation Straight 06/09/2021 8: 26 AM CDT Obstetrics History Last Filed Vital Signs Vital Sign Reading Time Taken Comments Blood Pressure 130/79 03/14/2025 9:28 AM CDT Pulse 73 03/14/2025 9:28 AM CDT Temperature 36.3 C (97.3 F) 03/14/2025 9:28 AM CDT Respiratory Rate 20 09/27/2024 9:56 AM HANGING FLAGS DECORATOR Oxygen Saturation 99% 03/14/2025 9:28 AM CDT Inhaled Oxygen Concentration - - Weight 63.1 kg (139 lb 3.2 oz) 03/14/2025 9:28 A M CDT Height 160 cm (5' 3) 03/14/2025 9:28 AM CDT Body Mass Index 24.66 03/14/2025 9:28 AM CDT Plan of Treatment Health Maintenance Due Date Last Done Comments Breast Cancer Screening-Mammogram 1967 Cervical Cancer Screening 1967 Colon Cancer Screening-Colonoscopy 1967 Depression Screening 1967 Hepatitis C Screening 1967 DTaP/Tdap/Td Vaccine (1 - Tdap) 1978 Hepatitis B Screening 1985 Regular Well Visit/Exam 18-64 1985 Zoster Vaccine (1 of 2) 2017 Covid-19 Vaccine (4 - 2024-2 6 season) 2025 05/03/2021, 10/31/2020, 10/07/2020 Influenza Vaccine (#1) 2025 Pneumococcal vaccine <65 Aged Out No longer eligible based on patient's age to complete this topic Medical Devices Implanted Type Area Catshovel Driver Device Identifier Shelf Expiration Date Model / Serial / Lot Titaneum Cranial Plate/Screws Other - see comments Cranial Description:Please see Care Everywhere for detail of implants Insurance CHOICE PLUS [facility] HMO/PPO Address: [place] [address] [facility] CHOICE PLUS [facility] H[facility]/PPO Address: [facility] [address] [place] [address] Advance Directives For more information, please contact: [phone] * Full Code (Latest Code Status on File) Date Activated Date Inactivated Comments 09/26/2018 6:43 PM 09/27/2018 8:00 PM Care Teams Restaurant And Bar Manager Relationship Specialty Start Date End Date Buddy Solomon MD PCP - General Family Medicine 08/28/18 Ofe Valencia MD Radiation Oncologist Radiation Oncology 12/19/20 Allen Davis MD [address] [place] [address] Consulting Physician Cardiology 09/27/24
--- OUTSIDE RECORDS SUMMARY | 2025-06-16 14:40 | XMS_ITS | Clinical Summary ---
Author Organization [facility] Address [address] [place] [address] Phone Care Team Providers Care Crusher And Blender Operator Name Role Phone Buddy Solomon MD Primary Care Provider [phone] Allergies No known active allergies Medications sertraline (ZOLOFT) 100 mg tablet Take 50 mg by mouth daily. 08/23/2018 Active [place]-3 Fatty Acids 1,000 mg Capsule Take 1 Tablet by mouth. Active multivitamin (DAILY-KIKE) tablet Take 1 Tablet by mouth daily. Active famotidine (PEPCID) 20 mg tablet Take 1 Tablet (20 mg) by mouth 2 times daily. 30 Tablet 11/28/2020 12:52 PM CDT 11/28/2020 Active acetaminophen (TYLENOL) 500 mg tablet Take 1,000 mg by mouth every 8 hours as needed for Pain. Active sennosides-docu sate sodium (SENNA-S) 8.6-50 mg tablet Take 1 Tablet by mouth 2 times daily. Active polyethylene glycol 3350 (MIRALAX) 17 gram/dose Powder Take 17 Grams by mouth 1 time daily as needed for Constipation. Dissolve in 8 ounces of fluid and drink entire liquid Active Active Problems Problem Noted Date Diagnosed Date Brain tumor Cancer Staging:Pathologic stage from 12/09/2020:WHO Grade III- Signed by Christine Anderson MD on 12/09/2020 Mood disorder History of tongue cancer S/P craniotomy Preop testing Family History Medical History Relation Name Comments Healthy Brother 1 Healthy Brother 2 Healthy Daughter Cancer Father bladder cancer Pancreatic Cancer Maternal Aunt Healthy Maternal Grandfather Anemia Maternal Grandmother Healthy Maternal Grandmother Healthy Mother Healthy Paternal Grandfather Healthy Paternal Grandmother Healthy Son Relation Name Status Comments Brother 1 Alive Brother 2 Alive Daughter Alive Father Alive Maternal Aunt Alive Maternal Grandfather Maternal Grandmother Mother Alive Paternal Grandfather Paternal Grandmother Son Alive Social History Tobacco Use Types Packs/Day Years Used Date Smoking Tobacco: Former Cigarettes 1 30 0 09/12/1987 - 09/12/2017 Smokeless Tobacco: Never Tobacco Cessation:Counseling Given: No Alcohol Use Standard Drinks/Week Comments Yes 0 (1 standard drink = 0.6 oz pur e alcohol) social Comments No Sex and Gender Information Value Date Recorded Sex Assigned at Not on file Legal Sex Female 3:43 PM CDT Gender Identity Not on file Sexual Orientation Not on file Last Filed Vital Signs Vital Sign Reading Time Taken Comments Blood Pressure 130/70 12/10/2020 8:52 AM CDT Pulse 61 12/10/2020 8:52 AM CDT Temperature 36.7 C (98 F) 12/09/2020 8:44 AM CDT Respiratory Rate 17 12/10/2020 8:52 AM CDT Oxygen Saturation 99% 12/10/2020 8:52 AM CDT Inhaled Oxygen Concentration - - Weight 70.3 kg (155 lb) 12/10/2020 8:52 AM CDT Height 160 cm (5' 3) 12/10/2020 8:52 AM CDT Body Mass Index 27.46 12/10/2020 8:52 AM CDT Plan of Treatment Health Maintenance Due Date Last Done Comments DTAP/TDAP/TD VACCINES (1 - Tdap) 1986 HEPATITIS B VACCINES (1 of 3 - 19+ 3-dose series) 1986 HPV/Cotest (21-29) 1988 CERVICAL CANCER SCREENING 1997 HPV/Cotest (30-65) 1997 PAP SMEAR 1997 BREAST CANCER SCREENING 2007 COLORECTAL SCREENING 2012 Colorectal Cancer Screening 2012 FIT-DNA Q 3 years 2012 FIT/FOBT Q 1 year 2012 Flex Sig/CT Colonography Q 5 years 2012 ZOSTER VACCINE (1 of 2) 2017 INFLUENZA VACCINE (#1) 2025 COVID-19 Vaccine ( season) 2025 05/03/2021, 10/31/2020, 10/07/2020 Medical Devices Implanted Type Area Hip Hop Dance Instructor Device Identifier Shelf Expiration Date Model / Serial / Lot Hemostatic Surgicel 2x14in 1950 - [id number] Implanted:Qty: 1 on 11/26/2020 by Alicja Miller MD at [facility] Hemostatic Left: Brain J&J- [employer] 12/10/20241950 / / [id number] Hemostatic Surgifoam Sz100 1974 - [id number] Implanted:Qty: 1 on 11/26/2020 by Alicja Miller MD at [facility] Hemostatic Left: Brain J&J- [employer] 05/22/20241974 / / [id number] Hemostatic Surgiflo 8ml W/Thrombin 2993 - [id number] Implanted:Qty: 2 on 11/26/2020 by Alicja Miller MD at [facility] Hemostatic Left: Brain J&J- [employer] 03/11/2022 2994 / / [id number] Plate Matrxneuro Straight 503.062 - [id number] Implanted:Qty: 1 on 11/26/2020 by Alicja Miller MD at [facility] Plate Left: Cranial SYNTHES-STRATEC - MAXIFACIAL .06 2 / / Description:STERILIZATION DA TE: [id number] LOAD NUMBER: [id number] Plate Matrxneuro Cranial .062 - [id number] Implanted:Qty: 1 on 11/26/2020 by Alicja Miller MD at [facility] Plate Left: Cranial SYNTHES STRATEC 502.06 2 / / Description:STERILIZATION DA TE: [id number] LOAD NUMBER: 210 [id number] Plate Matrxneuro Bur Hl Cvr 503.021 - [id number] Implanted:Qty: 2 on 11/26/2020 by Alicja Miller MD at [facility] Plate Left: Cranial SYNTHES-STRATEC - MAXIFACIAL 503.02 1 / / Description:STERILIZATION DA TE: LOAD NUMBER: [id number] IKE REQ#[id number] Screw Matrixneuro Sd 503.104.01 - [id number] Implanted:Qty: 16 on 11/26/2020 by Alicja Miller MD at [facility] Screw Left: Cranial SYNTHES-STRATEC - MAXIFACIAL 503.10 4.01 / / Description:STERILIZATION DA TE: LOAD NUMBER: 210 [id number] Durepair 3x3in 77857 - [id number] Implanted:Qty: 1 on 11/26/2020 by Alicja Miller MD at [facility] Tissue Left: Brain MEDTRONIC- NEUROLOGIC TECH 03/11/2023 [id number] / / [id number] Description:Requisition: [id number] Insurance RX EXPRESS S[employer] Express RX [place] PLANS (INTERNAL) [facility] Internal Plans Advance Directives For more information, please contact: [phone] Documents on File Type Date Recorded Patient Food Production Machine Operator Expl anation Advance Directive POA 12/03/2020 12:52 PM Advance Directive POA * Full Code (Latest Code Status on File) Date Activated Date Inactivated Comments 11/26/2020 9:32 PM 11/28/2020 4:09 PM * Full Code Date Activated Date Inactivated Comments 11/26/2020 8:28 PM 11/26/2020 9:32 PM Care Teams Crusher And Blender Operator Relationship Specialty Start Date End Date Buddy Solomon MD PCP - General Family Practice 04/29/13
--- OUTSIDE RECORDS SUMMARY | 2025-06-16 14:40 | XMS_ITS | Encounter Summary ---
Author Organization [facility] Address [address] [place] [address] Phone Care Team Providers Care Seismograph Recorder Name Role Phone Buddy Solomon MD Primary Care Prov ider Ofe Valencia MD Unavailable [phone] Allen Davis MD Unavailable Encounter Details Date Type Department Care Team (Late st Contact Info) Description 08/30/2018 Telephone [facility] - [facility] [address] [place] [address] [place] [address] Suzanna Ledesma Social History Tobacco Use Types Packs/Day Years Used Date Smoking Tobacco: Never Assessed Comments Unknown Sex and Gender Information Value Date Recorded Sex Assigned at Not on file Legal Sex Female 12:45 PM 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 Gender Identity Female 06/09/2021 8:26 AM CDT Sexual Orientation Straight 06/09/2021 8: 26 AM CDT documented as of this encounter Plan of Treatment Not on file documented as of this encounter Visit Diagnoses Not on filedocumented in this encounter Care Teams Seismograph Recorder Relationship Specialty Start Date End Date Buddy Solomon MD PCP - General Family Medicine 08/28/18 Ofe Valencia MD Radiation Oncologist Radiation Oncology 12/19/20 Allen Davis MD [address] [facility] [address] [facility] [address] [place] [address] Consulting Physician Cardiology 09/27/24 documented as of this encounter
--- OUTSIDE RECORDS SUMMARY | 2025-06-16 14:40 | XMS_ITS | Encounter Summary ---
Author Organization [facility] Healthcare Address [address] [place] [address] Care Team Providers Care Addiction Social Worker Name Role Phone Buddy Solomon MD Primary Care Prov ider Ofe Valencia MD Unavailable [phone] Allen Davis MD Unavailable Encounter Details Date Type Department Care Team (Late st Contact Info) Description 12/30/2020 Telephone [facility] Radiology [address] [place] [address] Carolyn Huntley, DEYA [id number] [place] [address] Social History Tobacco Use Types Packs/Day Years [...] on file Legal Sex Female 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
[2025-06-16 14:42] VITALS: BP 152/95; PULSE 83; RESP 20; TEMP 36.8; O2SAT 99
--- NOTE | 2025-06-16 14:59 | ECG_ITS ---
Test Date: 2025-06-16 15:20:39 Measurements Intervals [place] Rate: 71 P: 43 DC: 173 QRS: -38 QRSD: 78 T: 90 QT: 407 QTc: 443 Interpretive Statements SINUS RHYTHM LEFT AXIS DEVIATION POSSIBLE ANTERIOR MYOCARDIAL INFARCTION , OF INDETERMINATE AGE T WAVE ABNORMALITY IN ANTEROLATERAL LEADS- CONSIDER ISCHEMIA BASELINE ARTIFACT- I, III, AVR, AVL ABNORMAL ECG Compared to ECG 09/06/2024 13:59:32 T WAVE ABNORMALITY HAS IMPROVED Electronically Signed On 06-16-2025 19:27:27 CDT by Santino Rivera D.O.
--- OUTSIDE RECORDS SUMMARY | 2025-06-16 15:16 | XMS_ITS | Clinical Summary ---
Author Organization [facility] Address [address] [place] [address] Phone Care Team Providers Care Group Home Supervisor Name Role Phone Buddy Solomon MD Primary Care Provider [phone]- [phone] Allergies No known active allergies Medications sertraline (ZOLOFT) 100 mg tablet Take 50 mg by mouth daily. 08/23/2018 Active [place]-3 Fatty Acids 1,000 mg Capsule Take 1 [...] 10/31/2020, 10/07/2020 Medical Devices Implanted Type Area Bi Specialist Device Identifier Shelf Expiration Date Model / Serial / Lot Hemostatic Surgicel 2x14in 1950 - [id number] Implanted:Qty: 1 on 11/26/2020 by Alicja Miller MD at [facility] Hemostatic Left: Brain J&J- [employer] 12/10/20241950 / / [id number] Hemostatic Surgifoam Sz100 1974 - [id number] Implanted:Qty: 1 on 11/26/2020 by Alicja Miller MD at [facility] Hemostatic Left: Brain J&J- [employer] 05/22/20241974 / / [id number] Hemostatic Surgiflo 8ml W/Thrombin 2993 - [id number] Implanted:Qty: 2 on 11/26/2020 by Alicja Miller MD at [facility] Hemostatic Left: Brain J&J- [employer] 03/11/2022 2994 / / [id number] Plate Matrxneuro Straight 503.062 - [id number] Implanted:Qty: 1 on 11/26/2020 by Alicja Miller MD at [facility] Plate Left: Cranial SYNTHES-STRATEC - MAXIFACIAL .06 2 / / Description:STERILIZATION DA TE: [id number] LOAD NUMBER: 210 [id number] Plate Matrxneuro Cranial .062 - [id number] Implanted:Qty: 1 on 11/26/2020 by Alicja Miller MD at [facility] Plate Left: Cranial SYNTHES STRATEC 502.06 2 / / Description:STERILIZATION DA TE: [id number] LOAD NUMBER: 210 [id number] Plate Matrxneuro Bur Hl Cvr 503.021 - [id number] Implanted:Qty: 2 on 11/26/2020 by Alicja Miller MD at [facility] Plate Left: Cranial SYNTHES-STRATEC - MAXIFACIAL 503.02 1 / / Description:STERILIZATION DA TE: LOAD NUMBER: 210 [id number] IKE REQ#[id number] Screw Matrixneuro Sd 503.104.01 - [id number] Implanted:Qty: 16 on 11/26/2020 by Alicja Miller MD at [facility] Screw Left: Cranial SYNTHES-STRATEC - MAXIFACIAL 503.10 4.01 / / Description:STERILIZATION DA TE: LOAD NUMBER: 210 [id number] Durepair 3x3in 44472 - [id number] Implanted:Qty: 1 on 11/26/2020 by Alicja Miller MD at [facility] Tissue Left: Brain MEDTRONIC- NEUROLOGIC TECH 03/11/2023 [id number] / / [id number] Description:Requisition: [id number] Insurance RX EXPRESS S[employer]IP[employer] Express RX [place] PLANS (INTERNAL) [facility] Internal Plans Advance Directives For more information, please contact: [phone] Documents on File Type Date Recorded Patient Pulp Bleacher Expl anation Advance Directive POA 12/03/2020 12:52 PM Advance Directive POA * Full Code (Latest Code Status on File) Date Activated Date Inactivated Comments 11/26/2020 9:32 PM 11/28/2020 4:09 PM * Full Code Date Activated Date Inactivated Comments 11/26/2020 8:28 PM 11/26/2020 9:32 PM Care Teams Group Home Supervisor Relationship Specialty Start Date End Date Buddy Solomon MD PCP - General Family Practice 04/29/13
--- OUTSIDE RECORDS SUMMARY | 2025-06-16 15:16 | XMS_ITS | Clinical Summary ---
Author Organization [facility] s Address [address] [place] [address] Care Team Providers Care Geoscience Laboratory Technician Name Role Phone Buddy Solomon MD Primary Care Prov ider Ofe Valencia MD Unavailable [phone] Allen Davis MD Unavailable Allergies No known active allergies Medications sertraline (ZOLOFT) 100 mg tabletIndicatio ns:depression Take 1 tablet (100 mg total) by mouth daily 8 Active omega-3 fatty acids 1,000 mg capsuleIndicati ons:hypertrigly ceridemia Take 1 tablet by mouth glue spreading machine operator before breakfast. 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 MONITOR Gender Identity Female 06/09/2021 8:26 AM CDT Sexual Orientation Straight 06/09/2021 8: 26 AM CDT Obstetrics History Last Filed Vital Signs Vital Sign Reading Time Taken Comments Blood Pressure 130/79 03/14/2025 9:28 AM CDT Pulse 73 03/14/2025 9:28 AM CDT Temperature 36.3 C (97.3 F) 03/14/2025 9:28 AM CDT Respiratory Rate 20 09/27/2024 9:56 AM PROPERTY ASSESSMENT MONITOR Oxygen Saturation 99% 03/14/2025 9:28 AM CDT [...] this topic Medical Devices Implanted Type Area Waiter/Waitress Dining Car Device Identifier Shelf Expiration Date Model / Serial / Lot Titaneum Cranial Plate/Screws Other - see comments Cranial Description:Please see Care Everywhere for detail of implants Insurance CHOICE PLUS [facility] [place] [address] Advance Directives For more information, please contact: [phone] * Full Code (Latest Code Status on File) Date Activated Date Inactivated Comments 09/26/2018 6:43 PM 09/27/2018 8:00 PM Care Teams Geoscience Laboratory Technician Relationship Specialty Start Date End Date Buddy Solomon MD PCP - General Family Medicine 08/28/18 Ofe Valencia MD Radiation Oncologist Radiation Oncology 12/19/20 Allen Davis MD [address] [place] [address] Consulting Physician Cardiology 09/27/24
--- OUTSIDE RECORDS SUMMARY | 2025-06-16 15:16 | XMS_ITS | Encounter Summary ---
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
--- OUTSIDE RECORDS SUMMARY | 2025-06-16 15:17 | XMS_ITS | Encounter Summary ---
Author Organization [facility] Address [address] [place] [address] Phone Care Team Providers Care Information Clerk Name Role Phone Buddy Solomon MD Primary Care Prov ider Ofe Valencia MD Unavailable [phone] Allen Davis MD Unavailable Encounter Details Date Type Department Care Team (Late st Contact Info) Description [facility] Social History Tobacco Use Types Packs/Day Years Used Date Smoking Tobacco: Every Day Cigarettes 1 40.8 Started: 1984 Smokeless Tobacco: Never Alcohol Use Standard Drinks/Week Comments Yes 10 (1 standard drink = 0.6 oz pu re alcohol) Comments No Sex and Gender Information Value Date Recorded Sex Assigned at Not on file Legal Sex Female 12:45 PM [place]ITH Gender Identity Female 06/09/2021 8:26 AM CDT Sexual Orientation Straight 06/09/2021 8: 26 AM CDT documented as of this encounter Plan of Treatment Not on file documented as of this encounter Visit Diagnoses Not on filedocumented in this encounter Care Teams Information Clerk Relationship Specialty Start Date End Date Buddy Solomon MD PCP - General Family Medicine 08/28/18 Ofe Valencia MD Radiation Oncologist Radiation Oncology 12/19/20 Allen Davis MD [address] [facility] [address] [place] [address] Consulting Physician Cardiology 09/27/24 documented as of this encounter
--- OUTSIDE RECORDS SUMMARY | 2025-06-16 15:17 | XMS_ITS ---
Author Organization [facility] [address] Address [address] [place] [address] Care Team Providers Care Aircraft Accessories Mechanic Name Role Phone Buddy Solomon MD Primary Care Prov ider Ofe Valencia MD Unavailable [phone] Allen Davis MD Unavailable Active Problems Problem Noted Date Diagnosed Date Cardiomyopathy, ischemic 01/22/2025 Coronary artery disease invo lving douglas coronary artery of douglas heart 09/06/2024 ST elevation (STEMI) myocard ial [...] Treatment Medications Discontinue Reason Plan Provider Cycles [phone] - [facility] - Brain [...]
--- OUTSIDE RECORDS SUMMARY | 2025-06-16 15:17 | XMS_ITS | Encounter Summary ---
Author Organization [facility] Healthcare Address [address] [place] [address] Care Team Providers Care Direct Marketing Executive Name Role Phone Buddy Solomon MD Primary Care Prov ider Ofe Valencia MD Unavailable [phone] Allen Davis MD Unavailable Encounter Details Date Type Department Care Team (Late st Contact Info) Description 02/11/2021 [facility] Radiation Oncology [address] [facility] [place] [address] Ofe Valencia MD [address] [place] [address] Social History Tobacco Use Types [...] on file 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
--- OUTSIDE RECORDS SUMMARY | 2025-06-16 15:17 | XMS_ITS | Encounter Summary ---
Author Organization [facility] Address [address] [place] [address] Phone Care Team Providers Care Business Process Lead Name Role Phone Buddy Solomon MD Primary Care Prov ider Ofe Valencia MD Unavailable [phone] Allen Davis MD Unavailable Encounter Details Date Type Department Care Team (Late st Contact Info) Description 08/30/2018 Telephone [facility] ([facility]) - [facility] ENT [facility] access hospital[facility] 11th [place] [address] [place] [address] Suzanna Ledesma Social History Tobacco Use Types Packs/Day Years Used Date Smoking Tobacco: Never Assessed Comments Unknown Sex and Gender Information Value Date Recorded Sex Assigned at Not on file 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 Gender Identity Female 06/09/2021 8:26 AM CDT Sexual Orientation Straight 06/09/2021 8: 26 AM CDT documented as of this encounter Plan of Treatment Not on file documented as of this encounter Visit Diagnoses Not on filedocumented in this encounter Care Teams Business Process Lead Relationship Specialty Start Date End Date Buddy Solomon MD PCP - General Family Medicine 08/28/18 Ofe Valencia MD Radiation Oncologist Radiation Oncology 12/19/20 Allen Davis MD [address] [facility] [address] [facility] [address] [place] [address] Consulting Physician Cardiology 09/27/24 documented as of this encounter
[2025-06-16 15:21] LABS: Hematocrit 40.1 % (37.0-47.0); Hemoglobin 14.2 g/dL (12.0-15.0); Immature Granulocyte Percent A 0.2 % (0-0.5); Lymphocytes Absolute Auto 1.19 K/mm3 (0.9-3.2); Mean Corpuscular HGB Conc 35.4 g/dl (32-36); Mean Corpuscular Hemoglobin 33.7 pg (26-34); Mean Corpuscular Volume 95.2 fl (80-100); Nucleated Red Blood Cells Absolute Auto 0.000 K/mm3 (0.0-0.012); Nucleated Red Blood Cells Perc 0.0 % (0.0-0.2); Platelet Count Result 371 k/mm3 (150-375); Red Blood Count 4.21 M/mm3 (4.2-5.4); White Blood Count 4.6 K/mm3 (4.5-10.0)
--- NOTE | 2025-06-16 15:38 | ED.GENADULT ---
HPI - General Adult General Chief complaint: Unspecified Stated complaint: she has been twitching a lot Time Seen by Provider: 06/16/25 14:56 History of Present Illness HPI narrative: Patient is a 59-year-old female who presents ER with reports of twitching and a possible syncopal/seizure event. Patient reports she has been under significant stress recently and has been having occasional twitching of her arms or legs. Reports that it was recurring today. She was sitting outside and she recalls bending over because she was feeling weak. She then remembers waking up on the ground. Apparently her son saw her bending over and went to get her and she had been having the jerks and so he later down. She had no tongue biting. No loss of bladder or bowel. No history of seizure disorder. Reports she has had twitching the past when she has been stressed. Denies any trauma. Denies any intoxicants. Related Data Home Medications ?Medication ?Instructions ?Recorded ?Confirmed ?Last Taken ?Type grfxernt-lbt-DK 200 mcg-vit K 100 1 cap PO DAILY 04/14/23 01/31/25 09/04/24 History mcg-lycop 500 [id number]-[id number] capsule (Daily Multivitamin) omega-3 fatty acids-fish oil 300 1 cap PO .QD 05/26/23 01/31/25 09/04/24 History mg-500 mg capsule (Fish Oil) sacubitril 24 mg-valsartan 26 mg 1 tablet PO BID 01/31/25 01/31/25 Unknown History tablet (Entresto) Allergies Allergy/AdvReac Type Severity Reaction Status Date / Time No Known Allergies Allergy Verified 01/31/25 13:18 Review of Systems Review of Systems: All systems reviewed & are unremarkable except as noted in HPI and below Constitutional: Constitutional: Reports no additional constitutional complaints ENT: Reports system reviewed and no additional complaints, except as documented Cardiovascular: Cardiovascular: Reports no additional cardiovascular complaints Respiratory: Respiratory: Reports no additional respiratory complaints Neurologic: Reports system reviewed and no additional complaints, except as documented [facility] Past Medical History Medical History 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 Surgical History Surgical History History of right coronary artery stent placement (08/2024) History of tubal ligation History of tonsillectomy and adenoidectomy H/O brain surgery Family History Family History Father Family history of malignant neoplasm bladder cancer Hypertension Other Family history of pancreatic cancer Mother Hypertension Sibling Hypertension Other Family history of allergic disorder Social History Social History Smoking packs per day: 1.0 Smoking cigarettes per day: 20.0 Years smoked: 36 Smoking pack-years: 36.00 Smoking status: Current every day smoker Tobacco type: cigarettes Smoking end date: 09/12/18 Alcohol intake: current Drinks per week: 10 Alcohol use details: Once per week. Substance use: current Substance use type: does not use Last use: beers Do You Feel Safe in your Home?: Yes Lack of Transportation: No Lack of Food: Never True Current Housing: I Have Housing Concerned About Future Housing: No Difficulty Paying Gas/Electric Bills: No Difficulty Paying for Meds: No Currently Unemployed: No Education: Trade/Vocational Certificate Difficulty w/ Childcare or Family Care: No Occupation/Education: occupation Gender identity (if verbalized by the patient): Female Spiritual care concerns: No Exam Narrative: GENERAL: Well-appearing, well-nourished, and in no acute distress. HEAD: Normocephalic, atraumatic. EYES: PERRL, EOMI ENT: Mucous membranes moist. Normal tongue. CHEST: Clear to auscultation. No respiratory distress. HEART: Regular rate and rhythm. Normal peripheral pulses. ABDOMEN: Soft, nontender, nondistended. EXTREMITIES: Normal range of motion. No edema. SKIN: Warm, dry, no rash. NEURO: Alert and oriented x3. Occasional to myoclonic jerking movements. The 1st movements occurred when she mentioned them and she had been without them upon my initial exam in the room. PSYCH: Normal mood and affect. Course Course Emergency Course: 1633: Patient went to the bathroom and came back. It was reported by family patient could not talk and was jerking. When I got the room she could talk can follow commands. She was having some jerking type movements that would occur in the arms and face and hands while she was moving around. 1746: Patient feels markedly improved Valium and is seeing the conversing with family happen. She still gets ill anxious but overal feels improved. D/c with PRN ativan. F/u with PCP. Reviewed imaging and labs with patient/family. Vital Signs Vital signs: Vital Signs Temperature 98.3 F 06/16/25 14:42 Pulse Rate 83 06/16/25 14:42 Respiratory Rate 20 06/16/25 14:42 Blood Pressure 152/95 H 06/16/25 14:42 Pulse Oximetry 99 06/16/25 14:42 Oxygen Delivery Room Air 06/16/25 14:42 Temperature 98.3 F 06/16/25 14:42 Pulse Rate 83 06/16/25 14:42 Respiratory Rate 20 06/16/25 14:42 Blood Pressure 152/95 H 06/16/25 14:42 Pulse Oximetry 99 06/16/25 14:42 Oxygen Delivery Room Air 06/16/25 14:42 Medical Decision Making Vital Signs Vital Signs: Vital Signs Temperature 98.3 F 06/16/25 14:42 Pulse Rate 83 06/16/25 14:42 Respiratory Rate 20 06/16/25 14:42 Blood Pressure 152/95 H 06/16/25 14:42 Pulse Oximetry 99 06/16/25 14:42 Oxygen Delivery Room Air 06/16/25 14:42 Temperature 98.3 F 06/16/25 14:42 Pulse Rate 83 06/16/25 14:42 Respiratory Rate 20 06/16/25 14:42 Blood Pressure 152/95 H 06/16/25 14:42 Pulse Oximetry 99 06/16/25 14:42 Oxygen Delivery Room Air 06/16/25 14:42 Lab Data 06/16/25 15:14 06/16/25 15:14 Labs: Lab Results 06/16/25 06/16/25 Range/Units 15:14 16:16 WBC 4.6 (4.5-10.0) K/mm3 RBC 4.21 (4.2-5.4) M/mm3 Hgb 14.2 (12.0-15.0) g/dL Hct 40.1 (37.0-47.0) % MCV 95.2 (80-100) fl MCH 33.7 (26-34) pg MCHC 35.4 (32-36) g/dl RDW 11.9 (11.5-14.5) % Plt Count 371 D (150-375) k/mm3 MPV 8.4 (7.4-10.4) fl Immature Gran % (Auto) 0.2 (0-0.5) % Neut % (Auto) 62.6 (45.5-73.1) % Lymph % (Auto) 25.9 (18.3-44.2) % Campbell % (Auto) 8.9 H (2.6-8.5) % Eos % (Auto) 1.3 (0-4.4) % Baso % (Auto) 1.1 (0.2-1.2) % Lymph # (Auto) 1.19 (0.9-3.2) K/mm3 Campbell # (Auto) 0.4 (0.1-0.6) K/mm3 Eos # (Auto) 0.1 (0-0.3) K/mm3 Baso # (Auto) 0.1 (0.0-0.1) K/mm3 Abs Immat Gran (auto) 0.01 (0.00-0.031) K/mm3 Absolute Neuts (auto) 2.9 (1.3-6.7) K/mm3 Absolute Nucleated RBC 0.000 (0.0-0.012) K/mm3 Nucleated RBC % 0.0 (0.0-0.2) % Sodium 133 L (137-145) mmol/L Potassium 4.3 (3.4-5.0) mmol/L Chloride 100 (98-107) mmol/L Carbon Dioxide 21 L (22-30) mmol/L Anion Gap 12 (4-12) mmol/L BUN 10 (7-17) mg/dL Creatinine 0.56 L (0.7-1.0) mg/dL Estim Creat Clear Calc 74 ml/min Estimated GFR > 60 (59 - ) Glucose 107 (65-110) mg/dL Lactic Acid 1.1 (0.7-2.0) mmol/L Calcium 9.8 (8.4-10.2) mg/dL Total Bilirubin 0.7 (0.2-1.3) mg/dL AST 27 (14-36) U/L ALT 17 (6-35) U/L Alkaline Phosphatase 103 (38-126) U/L Total Protein 7.2 (6.3-8.2) g/dL Albumin 4.5 (3.5-5.1) g/dL Urine Color Yellow (Yellow) Urine Appearance Clear (Clear) Urine pH 6.0 (5.0-9.0) Ur Specific [place] 1.017 (1.001-1.035) Urine Protein 1+ H (Negative) mg/dL Urine Glucose (UA) Negative (Negative) mg/dL Urine Ketones Trace H (Negative) mg/dL Ur Blood (Man) 3+ H (Negative) Urine Nitrate Negative (Negative) Urine Bilirubin Negative (Negative) Urine Urobilinogen 1.0 (<2.0) mg/dL Leukocyte Esterase Rfl Trace H (Negative) LOLA/UL Urine RBC >100 H (0-2) /hpf Urine WBC 0-5 (0-3) /hpf Ur Squamous Epith Cells None seen (Few) /hpf Urine Bacteria None seen /hpf Urine Casts 0-2 Urine Opiates Screen Negative (Negative) Urine Methadone Screen Negative (Negative) Ur Barbiturates Screen Negative (Negative) Ur Phencyclidine Scrn Negative (Negative) Ur Amphetamine Screen Negative (Negative) U Benzodiazepines Scrn Negative (Negative) Urine Cocaine Screen Negative (Negative) U Cannabinoids Screen Negative (Negative) Ethyl Alcohol < 10 (<10) mg/dL Imaging Data Radiologist's impression: ITS Impressions Chest X-Ray 06/16/25 15:37 Impression: No acute cardiopulmonary abnormality. Head CT 06/16/25 15:48 Impression: 1.No acute intracranial abnormality. ECG Data EKG #1: ECG completion date: 06/16/25 ECG completion time: 13:59 EKG Interpretation: normal rate (61), sinus rhythm, normal QRS, left axis and other (inverted t-waves anterolaterally. chronic) Discharge Plan Discharge Clinical Impression: Anxiety Patient Disposition: Home Condition: Stable Instructions: Anxiety (ED) Additional Instructions: Return the ER if you have fever 100.4? F, you cannot keep down food water, you lose consciousness, or you have additional concerns. Patient Language: Bol[place]ian Prescriptions: New lorazepam [Ativan] 0.5 mg tablet 0.5 mg PO BID PRN (Reason: anxiety) Qty: 10 0RF No Action Daily Multivitamin 200-100-500 mcg capsule 1 cap PO DAILY Fish Oil 300-500 mg capsule 1 cap PO .QD clopidogrel 75 mg tablet 75 mg PO DAILY Qty: 90 0RF Entresto 24-26 mg tablet 1 tablet PO BID aspirin 81 mg tablet,delayed release (DR/EC) 81 mg PO QAM Qty: 90 3RF metoprolol succinate [Toprol XL] 25 mg tablet extended release 24 hr 25 mg PO QAM Qty: 90 3RF rosuvastatin 40 mg tablet 40 mg PO DAILY Qty: 90 3RF sertraline 100 mg tablet 100 mg PO DAILY Qty: 90 1RF albuterol sulfate 90 mcg/actuation HFA aerosol inhaler 2 inh inhalation QID PRN (Reason: shortness of breath or wheezing) Qty: 25.5 0RF Follow-up/Referrals: Buddy Solomon MD [Primary Care Provider, Family Practice] - 1 Week
[2025-06-16 15:46] LABS: Alanine Aminotransferase 17 U/L (6-35); Albumin Level 4.5 g/dL (3.5-5.1); Alkaline Phosphatase 103 U/L (38-126); Anion Gap 12 mmol/L (4-12); Aspartate Amino Transferase 27 U/L (14-36); Bilirubin,Total 0.7 mg/dL (0.2-1.3); Blood Urea Nitrogen 10 mg/dL (7-17); Calcium 9.8 mg/dL (8.4-10.2); Carbon Dioxide 21 mmol/L (22-30); Chloride 100 mmol/L (98-107); Estimated CRCL calculation 74 ml/min; Estimated Glomerular Filt Rate > 60; Glucose 107 mg/dL (65-110); Potassium 4.3 mmol/L (3.4-5.0); Sodium 133 mmol/L (137-145); Total Protein 7.2 g/dL (6.3-8.2)
[2025-06-16 16:40] LABS: Cannabinoid Screen Urine Negative (Negative)
[2025-06-16 16:45] LABS: Add Urine Microscopic? YES; Appearance Urine Clear (Clear); Glucose Urine UA Negative (Negative); Leukocyte Esterase Ur Trace LEU/UL (Negative); Nitrate Urine Negative (Negative); Non Pathogenic Casts 0-2; Specific Grav Ur 1.017 (1.001-1.035)
[2025-06-16] MEDS: diazePAM INJ (*CRX) 10 MG/2 ML SYRINGE 5 MG IV PUSH (16:45)
== END 2025-06-16 18:00 | disposition home or self-care (01) ==
PROVIDERS: Emergency Provider Emergency Medicine; PCP Family Medicine Adolescent Medicine
DX: F41.9 Anxiety disorder, unspecified (principal); R94.31 Abnormal electrocardiogram [ECG] [EKG]; Z85.810 Personal history of malignant neoplasm of tongue
CPT/HCPCS: 36415; 70450; 71046; 80053; 80307; 81001; 82077; 83605; 85025; 93005; 96374; 99284; J3360